=== PATIENT | female | born 1940 | race Caucasian/White ===

== ENCOUNTER 2017-04-27 06:35 | Emergency (ER) | payer MEDICARE, BC ==
[~2017-04-27] VITALS: Ht 157.5 cm; Wt 77.0 kg
[2017-04-27 06:35] VITALS: BP 173/82; PULSE 86; RESP 20; TEMP 99; O2SAT 96
--- NOTE | 2017-04-27 07:27 | PD ---
HPI Chief Complaint: Fall Time Seen by Provider: 07:14 Travel History International Travel<30 days: No Contact w/Intl Traveler<30days: No Traveled to known affect area: No History of Present Illness HPI The patient was seen and examined in the presence of the nurse. This patient fell in her bathroom this morning at 6 AM. Duration 90 minutes. Symptoms severity is moderate. She didn't turn the light on and reached for It and missed and over balanced and fell. She struck her head and face as well as tore her right arm on a cabinet handle. No loss of consciousness. She complains of headache in the right forehead and has right facial pain. Denies neck pain or vision loss or vision change. No alleviating factors. She called 911 and paramedics brought her here. She is ambulatory. PFSH Past Medical History Hx Anticoagulant Therapy: Yes (Aspirin) Depression: Yes Cardiovascular Problems: Yes High Cholesterol: Yes COPD: Yes Diminished Hearing: No GERD: Yes Respiratory: Yes Immunizations Current: Yes Thyroid Disease: Yes Influenza Vaccination: No Past Surgical History Cardiac Surgery: Yes (link monitor) Cholecystectomy: Yes (2014) Hysterectomy: Yes (2006) Social History Alcohol Use: Yes (socially) Tobacco Use: No (former) Substance Use: No Allergies-Medications (Allergen,Severity, Reaction): Coded Allergies: Augmentin (Verified Allergy, Intermediate, rash, 04/27/17) Avelox (Verified Allergy, Intermediate, rash, 04/27/17) Feldene (Verified Allergy, Intermediate, rash, 04/27/17) Levaquin (Verified Allergy, Intermediate, rash, 04/27/17) Lisinopril (Verified Allergy, Intermediate, rash, 04/27/17) Mobic (Verified Allergy, Intermediate, rash, 04/27/17) Penicillin (Verified Allergy, Intermediate, rash, 04/27/17) Streptomycin Sulfate (Verified Allergy, Intermediate, rash, 04/27/17) Tagamet (Verified Allergy, Intermediate, rash, 04/27/17) Uncoded Allergies: narcotics (Adverse Reaction, Intermediate, "i go nuts", 04/27/17) Reported Meds & Prescriptions Reported Meds & Active Scripts Active Tramadol (Tramadol HCl) 50 Mg Tab 50 Mg PO Q6H PRN Reported Aspirin 81 (Aspirin) 81 Mg Tabdr 81 Mg PO DAILY Lipitor (Atorvastatin Calcium) 20 Mg Tab 20 Mg PO HS Hydrochlorothiazide 12.5 Mg Cap 12.5-25 Mg PO DAILY [mylanta] 30 Ml PO HS Lexapro (Escitalopram Oxalate) 20 Mg Tab 20 Mg PO DAILY Advair Diskus Inh (Fluticasone-Salmeterol Inh) 250-50 Mcg/Blist Aer 1 Puff INH BID Rinse mouth after use. Levothyroxine (Levothyroxine Sodium) 100 Mcg Tab 100 Mcg PO DAILY Omeprazole 40 Mg Cap 40 Mg PO DAILY Spiriva Handihaler (Tiotropium Inh) 18 Mcg Cap 18 Mcg INH DAILY 1 capsule = 18 mcg B-12 1000 (Cobalamine Combinations) 1,000-400 Mcg Subl 1 Tab PO DAILY Clarithromycin 500 Mg Tab 500 Mg PO BID Review of Systems General / Constitutional: No: Fever Eyes: No: Visual changes HENT: Positive: Headaches Cardiovascular: No: Chest Pain or Discomfort Respiratory: No: Shortness of Breath Gastrointestinal: No: Abdominal Pain Genitourinary: No: Dysuria Musculoskeletal: Positive: Pain Skin: No Rash Neurologic: Positive: Headache, No: Weakness Psychiatric: No: Depression Endocrine: No: Polydipsia Hematologic/Lymphatic: No: Easy Bruising Physical Exam Narrative GENERAL: Well-nourished, well-developed patient in no apparent distress. SKIN: Focused skin assessment reveals no rash and nodules. Skin is Warm and dry. Has large laceration to the right upper arm. Hook-shaped laceration 10 cm in length with an additional 3 cm curled away from the main line. There is subcutaneous tissue protruding through. Skin is paperthin from steroid use. As 2 small 1 cm very shallow lacerations to the right side of the nose. HEAD: Right sided periorbital ecchymosis and tenderness of the orbital rim. Normocephalic. EYES: Pupils equal and round. No scleral icterus. No injection or drainage. Normal extraocular muscle function ENT: No nasal bleeding or discharge. Mucous membranes pink and moist. NECK: Trachea midline. No JVD. No midline tenderness CARDIOVASCULAR: Regular rate and rhythm. No murmur appreciated. RESPIRATORY: No accessory muscle use. Clear to auscultation. Breath sounds equal bilaterally. GASTROINTESTINAL: Abdomen soft, non-tender, nondistended. Hepatic and splenic margins not palpable. MUSCULOSKELETAL: No obvious deformities. No clubbing. No cyanosis. No edema. NEUROLOGICAL: Awake and alert. No obvious cranial nerve deficits. Motor grossly within normal limits. Normal speech. PSYCHIATRIC: Appropriate mood and affect; insight and judgment normal. Data Data Last Documented VS Vital Signs Date Time Temp Pulse Resp B/P Pulse Ox O2 Delivery O2 Flow Rate FiO2 04/27/17 09:46 83 18 177/80 94 Room Air 04/27/17 06:[address] Brain W/O Iv Contrast(Rout) (04/27/17 ) Ct Facial Bones W/O Iv Cont (04/27/17 ) Lidocai-Epi 1%-1:100,000 Inj (Xylocaine- (04/27/17 07:30) Lidocai-Epi 1%-1:100,000 Inj (Xylocaine- (04/27/17 07:30) Lidocai-Epi 1%-1:100,000 Inj (Xylocaine- (04/27/17 07:30) Lidocai-Epi 1%-1:100,000 Inj (Xylocaine- (04/27/17 07:30) MDM Medical Decision Making Medical Screen Exam Complete: Yes Emergency Medical Condition: Yes Medical Record Reviewed: Yes Differential Diagnosis Facial fractures, intra-cranial hemorrhage, laceration Narrative Course I have reviewed the patient's electronic medical record. Brain CT is normal Facial bone CT shows a blowout fracture of the right orbital floor with some fat herniation but no entrapment of extraocular muscles. Her extraocular muscle function is full and normal. LACERATION LOCATION: Right upper arm LENGTH: 13 cm NUMBER OF STITCHES/DIVINA: 10 sutures REPAIR: The area of the laceration was prepped with Betadine and sterilely draped. The laceration was infiltrated with lidocaine with 1% epinephrine. The wound was copiously irrigated and explored without evidence of foreign body , tendon injury or neurovascular injury. The wound was closed using 3-0 Ethilon. This was a single layer repair but very complex. She has paper thin skin that does not allow typical closure. It was a gaping wound with subcutaneous fat hanging out. I used tweezers to put the fat back as close as I could and approximate the injury. I put a double layer of Steri-Strips on either side of the wound and sutured through the Steri-Strips to give it added strength. A sterile dressing was applied. The patient was advised to keep the dressing clean and dry. Patient tolerated the procedure well. LACERATION LOCATION: Right cheek and right arm LENGTH: 8 cm total, 4 separate lacerations to on the right cheek and 2 on the right arm NUMBER OF STITCHES/DIVINA: Dermabond REPAIR: The area of the laceration was prepped with Betadine and sterilely draped. No anesthesia needed. The wound was copiously irrigated and explored without evidence of foreign body, tendon injury or neurovascular injury. The wound was closed using Dermabond in a single layer repair. Patient tolerated the procedure well. I reviewed the orbital fracture findings with maxillofacial specialist Dr. Martin. He will see her in the office in a few days. He would like to have the swelling go down prior to any consideration of intervention. She will ice the area down and try to avoid blowing the nose or sneezing. She is currently on Biaxin I wrote her some medicine for pain Diagnosis Primary Impression: Head injury due to trauma Qualified Code: S09.90XA - Head injury due to trauma, initial encounter Additional Impressions: Orbital floor (blow-out), closed fracture Laceration of arm, right, multiple sites Qualified Code: S41.111A - Laceration of arm, right, multiple sites, initial encounter Additional Instructions: The patient was advised to follow up with their physician and maxillofacial physician and return if they worsen. Sutures out in 10 days Have a wound evaluation from your primary physician in 3-5 days The patient was warned about potential sedation for the medications they will receive on prescription. Apply ice to the right face and a try to avoid sneezing or blowing her nose Med/Other Pt SpecificInfo: Prescription(s) given Scripts Tramadol 50 Mg Tab50 Mg PO Q6H PRN (PAIN) #20 TAB Ref 0 Prov:Rober Bowden MD 04/27/17 Disposition: 01 DISCHARGE HOME Condition: Stable Rober Bowden MD Apr 27, 2017 07:27
[2017-04-27] MEDS ORDERED: HYDR12.57 PO (07:29)
[2017-04-27] MEDS ORDERED: mylanta PO (07:29)
[2017-04-27] MEDS ORDERED: LEVO100T5 PO (07:29)
[2017-04-27] MEDS ORDERED: SPIRCAP INH (07:29)
[2017-04-27] MEDS ORDERED: LEXA20TA PO (07:29)
[2017-04-27] MEDS ORDERED: CLAR500T PO (07:29)
[2017-04-27] MEDS ORDERED: ASPI-110 PO (07:29)
[2017-04-27] MEDS ORDERED: LIPI20TA PO (07:29)
[2017-04-27] MEDS ORDERED: ADVA250A INH (07:29)
[2017-04-27] MEDS ORDERED: COBA1000 PO (07:29)
[2017-04-27] MEDS ORDERED: OMEP40CA2 PO (07:29)
[2017-04-27] MEDS ORDERED: LIDOCAINE 1%/EPINEPHrine 1:100,000 SOLN 50 ML VIAL INFIL ONE (07:30)
[2017-04-27] MEDS ORDERED: LIDOCAINE 1%/EPINEPHrine 1:100,000 SOLN 20 ML VIAL INFIL ONE ×3 (07:30)
--- NOTE | 2017-04-27 08:36 | RADHPO ---
EXAM DATE/TIME: 04/27/2017 07:57 [facility] COMPARISON: No previous studies available for comparison. INDICATIONS : Patient fell this morning, hitting her head. Right infraorbital laceration. RADIATION DOSE: 58.79 CTDIvol (mGy) MEDICAL HISTORY : Cardiovascular disease. Chronic obstructive pulmonary disease. Anticoagulant therapy. SURGICAL HISTORY : Cholecystectomy. Hysterectomy. Link monitor. ENCOUNTER: Initial ACUITY: 1 day PAIN SCALE: 4/10 LOCATION: Right cranial TECHNIQUE: Multiple contiguous axial images were obtained of the head. Using automated exposure control and adj ustment of the mA and/or kV according to patient size, radiation dose was kept as low as reasonably a chievable to obtain optimal diagnostic quality images. FINDINGS: CEREBRUM: The ventricles are normal for age. No evidence of midline shift, mass lesion, hemorrhage or acute in farction. No extra-axial fluid collections are seen. POSTERIOR FOSSA: The cerebellum and brainstem are intact. The 4th ventricle is midline. The cerebellopontine angle i s unremarkable. EXTRACRANIAL: The appearance of the partial right maxillary sinus visualized is abnormal. There is possible fractur e of the inferior orbital margin or the right maxillary sinus. CT of the facial bones is warranted. SKULL: The calvaria is intact. No evidence of skull fracture. CONCLUSION: 1. There is only partial visualization of the face. There is abnormal appearance of the maxillary sin us on the right suggesting either fracture of the maxillary sinus or fracture the orbit. CT of the fa cial bones is warranted for further assessment. 2. No acute intracranial abnormality. Giorgio Vu MD on April 27, 2017 at 8:29 Board Certified Radiologist. This report was verified electronically.
--- NOTE | 2017-04-27 09:23 | RADHPO ---
EXAM DATE/TIME: 04/27/2017 07:57 [facility] COMPARISON: No previous studies available for comparison. INDICATIONS : Patient fell this morning, hitting her head. Right infraorbital laceration. RADIATION DOSE: 34.93 CTDIvol (mGy) MEDICAL HISTORY : Cardiovascular disease. Chronic obstructive pulmonary disease. Anticoagulant therapy. SURGICAL HISTORY : Cholecystectomy. Hysterectomy.Link monitor. ENCOUNTER: Initial ACUITY: 1 day PAIN SCORE: 4/10 LOCATION: Right facial TECHNIQUE: Volumetric scanning of the facial bones was performed. Using automated exposure control and adjustme nt of the mA and/or kV according to patient size, radiation dose was kept as low as reasonably achiev able to obtain optimal diagnostic quality images. FINDINGS: Examination is abnormal demonstrating a right orbital floor blowout fracture with displacement of the medial orbital wall 9 mm inferior. There is herniation of orbital fat into the superior maxillary s inus. The fracture line extends along the medial margin of the infraorbital canal. The anterior inf raorbital rim appears to be intact. The inferior rectus muscle remains in the orbit. There is soft tissue density within the right maxillary sinus. The lateral and inferior wall of the right maxillar y sinus is intact. There is a retention cyst in the left maxillary sinus. There is moderate subcutaneous soft tissue swelling in the right infraorbital region with associated small flecks of gas. No radiopaque foreign bodies. The nasal bone zygomatic arches, pterygoid plates, and maxilla are intact. CONCLUSION: Right orbital floor blowout fracture with herniation of fat, but no definite muscle entrapment. The displacement of the fracture line measures up to 9 mm. No involvement of the anterior infraorbital r im. Varghese Pineda MD on April 27, 2017 at 9:13 Board Certified Radiologist. This report was verified electronically.
[2017-04-27 09:46] VITALS: BP 177/80; PULSE 83; RESP 18; O2SAT 94
[2017-04-27] MEDS ORDERED: TRAM50TA PO (10:09)
[2017-05-05] MEDS ORDERED: ALUM320S2 PO (13:49)
[2017-05-05] MEDS ORDERED: ESCI10TA PO (13:49)
[2017-05-05] MEDS ORDERED: ATOR10TA15 PO (13:49)
[2017-05-06] MEDS ORDERED: VENTAER INH (14:07)
== END 2017-04-27 10:48 | disposition home or self-care (01) ==
LOC: PHED 06:35
DX: S02.31XA Fracture of orbital floor, right side, initial encounter for closed fracture (principal); S41.111A Laceration without foreign body of right upper arm, initial encounter; S01.411A Laceration without foreign body of right cheek and temporomandibular area, initial encounter; E78.00 Pure hypercholesterolemia, unspecified; J44.9 Chronic obstructive pulmonary disease, unspecified; K21.9 Gastro-esophageal reflux disease without esophagitis; E07.9 Disorder of thyroid, unspecified; W18.30XA Fall on same level, unspecified, initial encounter; Y93.E8 Activity, other personal hygiene; Y92.002 Bathroom of unspecified non-institutional (private) residence as the place of occurrence of the external cause; Y99.8 Other external cause status
CPT/HCPCS: 12005; 12011; 70450; 70486

== ENCOUNTER 2017-04-29 08:36 | Emergency (ER) | payer MEDICARE, BC ==
[~2017-04-29] VITALS: Ht 157.5 cm; Wt 78.0 kg
[~2017-04-29 08:36] MED LIST: ADVA250A INH; ASPI-110 PO; CLAR500T PO; COBA1000 PO; HYDR12.57 PO; LEVO100T5 PO; LEXA20TA PO; LIPI20TA PO; OMEP40CA2 PO; SPIRCAP INH; TRAM50TA PO; mylanta PO
[2017-04-29 08:40] VITALS: BP 137/65; PULSE 97; RESP 16; TEMP 98.3; O2SAT 95
--- NOTE | 2017-04-29 08:58 | PD ---
HPI Chief Complaint: Injury Time Seen by Provider: 08:55 Travel History International Travel<30 days: No Contact w/Intl Traveler<30days: No Traveled to known affect area: No History of Present Illness HPI 76-year-old female patient presents to the ER today, seen 2 days ago for a fall and right arm laceration, she states that she is here now because the right arm is becoming more swollen, bruising or, and more painful. Pain is currently a 7 out of 10. She denies any fevers, chest pains, shortness of breath, or any other issues. She denies any new injuries. Modifying Factors: None Associated Signs & Symptoms: Increased right arm pain and swelling, laceration 2 days ago Risk Factors: None PFSH Past Medical History Hx Anticoagulant Therapy: Yes (BABY ASA DAILY) Depression: Yes Cardiovascular Problems: Yes (HTN, CHOL) High Cholesterol: Yes COPD: Yes Cerebrovascular Accident: Yes (TIA) Diabetes: No Diminished Hearing: No GERD: Yes Respiratory: Yes Immunizations Current: Yes Thyroid Disease: Yes ?: Not Past Surgical History Cardiac Surgery: Yes (link monitor) Cholecystectomy: Yes (2014) Hysterectomy: Yes (2006) Social History Alcohol Use: Yes (socially) Tobacco Use: No (former) Substance Use: No Allergies-Medications (Allergen,Severity, Reaction): Coded Allergies: Augmentin (Verified Allergy, Intermediate, rash, 04/29/17) Avelox (Verified Allergy, Intermediate, rash, 04/29/17) Feldene (Verified Allergy, Intermediate, rash, 04/29/17) Levaquin (Verified Allergy, Intermediate, rash, 04/29/17) Lisinopril (Verified Allergy, Intermediate, rash, 04/29/17) Mobic (Verified Allergy, Intermediate, rash, 04/29/17) Penicillin (Verified Allergy, Intermediate, rash, 04/29/17) Streptomycin Sulfate (Verified Allergy, Intermediate, rash, 04/29/17) Tagamet (Verified Allergy, Intermediate, rash, 04/29/17) Uncoded Allergies: narcotics (Adverse Reaction, Intermediate, "i go nuts", 04/27/17) Reported Meds & Prescriptions Reported Meds & Active Scripts Active Tramadol (Tramadol HCl) 50 Mg Tab 50 Mg PO Q6H PRN Reported Aspirin 81 (Aspirin) 81 Mg Tabdr 81 Mg PO DAILY Lipitor (Atorvastatin Calcium) 20 Mg Tab 20 Mg PO HS Hydrochlorothiazide 12.5 Mg Cap 12.5-25 Mg PO DAILY [mylanta] 30 Ml PO HS Lexapro (Escitalopram Oxalate) 20 Mg Tab 20 Mg PO DAILY Advair Diskus Inh (Fluticasone-Salmeterol Inh) 250-50 Mcg/Blist Aer 1 Puff INH BID Rinse mouth after use. Levothyroxine (Levothyroxine Sodium) 100 Mcg Tab 100 Mcg PO DAILY Omeprazole 40 Mg Cap 40 Mg PO DAILY Spiriva Handihaler (Tiotropium Inh) 18 Mcg Cap 18 Mcg INH DAILY 1 capsule = 18 mcg B-12 1000 (Cobalamine Combinations) 1,000-400 Mcg Subl 1 Tab PO DAILY Clarithromycin 500 Mg Tab 500 Mg PO BID Review of Systems Except as stated in HPI: all other systems reviewed are Neg Physical Exam Narrative GENERAL: Pleasant well-developed elderly white female patient currently in mild distress. Awake and oriented 3. SKIN: Focused skin assessment warm/dry. Right arm skin tear and laceration with sutures in place, wound clean, dry, intact. There is surrounding ecchymosis but no significant erythema. Mildly tender to palpation. No significant fluctuance. HEAD: Atraumatic. Normocephalic. EYES: Pupils equal and round. No scleral icterus. No injection or drainage. Right eyelid ecchymosis. ENT: No nasal bleeding or discharge. Mucous membranes pink and moist. NECK: Trachea midline. No JVD. CARDIOVASCULAR: Regular rate and rhythm. No murmur appreciated. RESPIRATORY: No accessory muscle use. Clear to auscultation. Breath sounds equal bilaterally. GASTROINTESTINAL: Abdomen soft, non-tender, nondistended. Hepatic and splenic margins not palpable. MUSCULOSKELETAL: No obvious deformities. No clubbing. No cyanosis. No edema. NEUROLOGICAL: Awake and alert. No obvious cranial nerve deficits. Motor grossly within normal limits. Normal speech. PSYCHIATRIC: Appropriate mood and affect; insight and judgment normal. Data Data Last Documented VS Vital Signs Date Time Temp Pulse Resp B/P Pulse Ox O2 Delivery O2 Flow Rate FiO2 04/29/17 09:05 16 96 Room Air 04/29/17 08:40 98.3 97 137/65 Orders Us Arm Venous Doppler (04/29/17 08:55) MDM Medical Decision Making Medical Screen Exam Complete: Yes Emergency Medical Condition: Yes Medical Record Reviewed: Yes Differential Diagnosis Right arm wound check, increased swelling and painposttraumatic edema versus wound infections versus right arm DVT Narrative Course Ultrasound shows no signs of DVT. At this point, I do not see any signs of wound infection. And I suspect that some of the symptoms may be secondary to ongoing ecchymosis and edema secondary to the initial injury. My plan would be to release the patient with follow-up to primary care physician. Return for any worsening in pain, fevers, redness, signs of infection, and as needed. The plan was discussed with patient and she states understanding. Diagnosis Primary Impression: Traumatic ecchymosis of right upper arm Additional Impression: Visit for wound check Disposition: DISCHARGE HOME Condition: Stable Ofe Lawson MD Apr 29, 2017 08:58
--- NOTE | 2017-04-29 10:05 | RADHPO ---
EXAM DATE/TIME: 04/29/2017 09:05 [facility] COMPARISON: No previous studies available for comparison. INDICATIONS : Right arm edema. MEDICAL HISTORY : Hypothyroidism. Hypercholesterolemia. Chronic obstructive pulmonary disease. TIA. Hypertension. SURGICAL HISTORY : Cholecystectomy. Hysterectomy. ENCOUNTER: Initial ACUITY: 3 days PAIN SCORE: 7/10 LOCATION: Right arm. FINDINGS: There is spontaneous flow documented in the brachial, basilic, cephalic, axillary, and subclavian vei ns. The vessels are compressible and augmentation response is documented. No filling defects are se en. The flow is phasic with respiration. Direction of flow in the jugular vein is caudal. CONCLUSION: Normal examination. Varghese Meyer Jr., MD on April 29, 2017 at 10:02 Board Certified Radiologist. This report was verified electronically.
[2017-05-05] MEDS ORDERED: ALUM320S2 PO (13:49)
[2017-05-05] MEDS ORDERED: ATOR10TA15 PO (13:49)
[2017-05-05] MEDS ORDERED: ESCI10TA PO (13:49)
[2017-05-06] MEDS ORDERED: VENTAER INH (14:07)
== END 2017-04-29 10:29 | disposition home or self-care (01) ==
LOC: PHED 08:36
DX: S40.021A Contusion of right upper arm, initial encounter (principal); W19.XXXA Unspecified fall, initial encounter
CPT/HCPCS: 93971; 99284

== ENCOUNTER → 2017-05-06 | Day surgery (SDC) | payer MEDICARE, BC ==
--- NOTE | 2017-05-05 19:19 | MH ---
cc: ABRAM CRAWLEY D.D.S. DATE OF ADMISSION 05/06/2017 DATE OF 1940 DATE OF CONSULTATION May 01, 2017 DATE OF SURGERY May 06, 2017 REASON FOR OFFICE VISIT She is a pleasant lady who is status post a fall, hitting her right orbit, sustained an orbital blowout fracture. Her past medical history includes COPD, gastroesophageal reflux, history of transient ischemic attack. PAST HOSPITALIZATIONS 1. She had a fracture of right arm repaired. 2. She had a hysterectomy. 3. Her gallbladder out as well. PAST MEDICAL HISTORY Medical history malone, 1. She has controlled hypertension. 2. She had a TIA in July of last year. 3. She had a Reveal heart monitor implanted that is in place. ALLERGIES NO ALLERGIES TO LOCAL ANESTHESIA. SHE DOES HAVE AN ALLERGY TO PENICILLIN AND IBUPROFEN. CURRENT MEDICATIONS She takes include: 1. Spiriva 18 micrograms daily. 2. Levothroid 112 micrograms daily. 3. Prilosec 40 milligrams twice a day. 4. Advair twice a day. 5. Lexapro 20 milligrams daily. 6. Mylanta 30 milligrams as needed. 7. Hydrochlorothiazide 12.5 daily. 8. Lipitor 20 milligrams daily. 9. Baby aspirin. ALLERGIES AGAIN HER ALLERGIES ARE EXTENSIVE AND INCLUDE PENICILLIN, NARCOTICS MAKE HER NAUSEOUS. AUGMENTIN. STREPTOMYCIN, FELDENE, LEVAQUIN, AVELOX, TAGAMET, LISINOPRIL, MOBIC. REVIEW OF SYSTEMS Again she: CARDIOVASCULAR: Has a history of hypertension. RESPIRATORY: She has a history of chronic obstructive pulmonary disease, emphysema. She smoked for years. ENDOCRINE: No history of diabetes or hormone therapy. HEMATOLOGIC: No anemia, transfusions. NEUROLOGIC: No sensory or motor disturbances. PHYSICAL EXAMINATION EYES: Her pupils are equal, round and reactive to lysis of adhesions. Extraocular muscles are intact. grossly intact. NOSE: Her nasal bones are stable. Septum in the midline. MOUTH: And oral cavity malone she has no pathology. She has normal dentition. CARDIOVASCULAR: Regular rate and rhythm. No murmurs heard. She does have a Reveal heart monitor implant placed. GASTROINTESTINAL: She has a history of gallbladder and peptic ulcer problems. EXTREMITIES: She has got good range of motion. NEUROLOGIC: She is alert and oriented times three. PLAN Our plan is to [facility] for reconstruction of her right orbital blow out fracture with use of a KLS reabsorbable mesh. Risks and benefits were discussed with the patient. Consent planned. She will present to [facility] for outpatient surgery. MANJIT Merino /4:03 PM /6:52 PM
[~2017-05-06] VITALS: Ht 157.5 cm; Wt 78.4 kg
[~2017-05-06] MED LIST changes: +ACETAMINOPHEN 325 MG TAB PO PRN; +ALUM320S2 PO; +ATOR10TA15 PO; +BACITRACIN OPHT OINT 3.5 GM TUBO ONE; +BACITRACIN TOP OINT 15 GM TUBE ONE; +BALANCED SALT SOLN OPHT IRRIG 15 ML BTL ONE; +BUPIVACAINE/EPINEPHRINE 0.5% PF 30 ML VIAL ONE; +CHLORHEXIDINE GLUCONATE 2 % 1 PACK (2 CLOTHS) TOPICAL PRN; +DO NOT ADM ANY ANTICOAGULANT DRUGS PRN; +ESCI10TA PO; +FAMOTIDINE 20 MG/2 ML VIAL ONE; +INSULIN HUMAN REGULAR 1,000 UNITS/10 ML VIAL SQ PRN; +LACTATED RINGER'S 1000 ML IV PRN; -LEXA20TA PO; +LIDOCAINE 2%/EPINEPHrine 1:100,000 30ML MDV ONE; +LIDOCAINE HCL 1% 50 ML VIAL ONE; +LIDOCAINE HCL 2% 50 ML VIAL ONE; -LIPI20TA PO; +METOPROLOL TARTRATE 25 MG TAB PO PRN; +MORPHINE SULFATE 4 MG/ML INJ IV PRN; +ONDANSETRON HCL 4 MG/2 ML VIAL IV PUSH ONE; +POVIDONE IODINE 5% (ANTISEPSIS KIT) 4 APPLICATIONS EACH NARE PRN; +SODIUM CHLORID 0.9% 500 ML IV PRN; +SODIUM CHLORIDE FLUSH BID IV FLUSH SCH; +SODIUM CHLORIDE FLUSH PRN IV FLUSH; +SUGAMMADEX SODIUM 200 MG/2 ML VIAL IV PUSH ONE; +VENTAER INH; +fentaNYL CITRATE 250 MCG/5 ML AMP ONE; -mylanta PO
[2017-05-06 13:45] VITALS: BP 105/65; PULSE 78; RESP 18; TEMP 97.8; O2SAT 94
[2017-05-06 17:46] VITALS: BP 112/49; PULSE 77; RESP 18; TEMP 98; O2SAT 95
--- NOTE | 2017-05-07 22:52 | EKG ---
Date Performed: 05/06/2017 Time Performed: 13:15:18 PTAGE: 76 years EKG: Sinus rhythm NORMAL ECG NO PREVIOUS TRACING DOCTOR: Roberto Jin Interpretating Date/Time 05/07/2017 22:50:31
--- NOTE | 2017-05-08 20:17 | MP ---
cc: ABRAM CRAWLEY DDS DATE OF SURGERY 05/06/17 DATE OF 1940. PREOPERATIVE DIAGNOSIS Right orbital blowout fracture POSTOPERATIVE DIAGNOSIS Right orbital blowout fracture PROCEDURE PERFORMED Reconstruction of right orbital floor with KLS mesh. SURGEON Mary Crawley, MANJIT BEAUTY DIRECTOR Jacobo ANESTHESIA General anesthesia with oral endotracheal tube FLUIDS GIVEN 500 mL crystalloid SPECIMEN None. COMPLICATIONS None. JUSTIFICATION Ms. Spangler a pleasant 76-year lady that fell about 10 days ago at home, sustained a blow to her right arm that she severed on the dresser and the right orbital blowout fracture. Her right arm was repaired in the emergency room. She came to my office about a week after her injury. CT scan was evaluated and noted to have orbital blowout fracture. There was extensive, almost a centimeter in separation, with a herniation of the contents from the orbital floor to the maxillary antrum. Plan is for surgery. Discussed the risk and benefit. The patient diplopia as well on upward gaze as well as looking forward. On 05/06, she presented to [facility] where she was identified by name and her wristband, marking done with the patient in the holding area, brought back into OR #6 where she was intubated by anesthesia. Endotracheal tube was secured to the left side. She was prepped and draped in a sterile fashion. Local anesthesia was given in the right orbit in the transconjunctival area with 3 mL of 2% Xylocaine 1:100,000 epinephrine. Initial incision made just for release of the tarsal plates just inside the lateral canthal region, 2-0 silk used to suture the lid down. Desmoid ___ retractor was placed. Bovie on a setting of 15 was used to make a preseptal incision in the conjunctiva dissecting down with Kittner's to the rim, cut down the rim with a Bovie and then lifting up the periorbita with the periosteal elevator to lift the periosteum off the orbital floor to expose the blowout which is significant in the middle and to medial wall. Contents of the orbit. All the fat and muscle were pulled back out of the hole leading into the sinus. It was irrigated with copious amounts of saline and then KLS mesh was placed with the triangular patch fashion heading posteriorly and the open part of the mesh anteriorly. It was fixated to the rim with a 5 mm 1.5 KLS screw. Again, forced duction testing making sure good rotation of the eye rechecking to make it was laying flush on the floor and all the contents were above it plugging up the hole in the floor of the orbit. Irrigation with balanced saline solution. Closure of the tarsal was done with a 5-0 PDS in a knot burying fashion in a 5-0 fast gut on the skin. The patient tolerated procedure well, was extubated, taken to recovery with vital signs stable. MANJIT Merino/ /4:35 PM /8:10 PM
== END | disposition home or self-care (01) ==
LOC: HSDC 12:28
PROVIDERS: ATTEND Dentist Oral and Maxillofacial Surgery
DX: S02.31XA Fracture of orbital floor, right side, initial encounter for closed fracture (principal); I10 Essential (primary) hypertension; J44.9 Chronic obstructive pulmonary disease, unspecified; E78.5 Hyperlipidemia, unspecified; E03.9 Hypothyroidism, unspecified; Z86.73 Personal history of transient ischemic attack (TIA), and cerebral infarction without residual deficits; Z88.0 Allergy status to penicillin; W19.XXXA Unspecified fall, initial encounter; Z87.891 Personal history of nicotine dependence; Z88.1 Allergy status to other antibiotic agents; Z88.5 Allergy status to narcotic agent; Z88.8 Allergy status to other drugs, medicaments and biological substances
CPT/HCPCS: 21386; 93005; C1713; J2405; J3010; J7120

== ENCOUNTER → 2017-06-09 | Day surgery (SDC) | payer MEDICARE, BC ==
[~2017-06-09] VITALS: Ht 157.5 cm; Wt 78.7 kg
[~2017-06-09] MED LIST changes: +*RESP: ALBUTEROL 2.5 MG/3 ML NEB (PRN) PERIprocedural Use ONLY NEB ONE; +ACETAMINOPHEN 1000 MG/100 ML VIAL IV ONE; -ACETAMINOPHEN 325 MG TAB PO PRN; +APREPITANT 40 MG CAP ONE; +ASPI-99 PO; +ATOR40TA16 PO; -BUPIVACAINE/EPINEPHRINE 0.5% PF 30 ML VIAL ONE; -CLAR500T PO; +CLINDAMYCIN PHOS 600 MG/4 ML VIAL ONE; -DO NOT ADM ANY ANTICOAGULANT DRUGS PRN; -FAMOTIDINE 20 MG/2 ML VIAL ONE; +FEXO15TA PO; +LEVO88TA2 PO; -LIDOCAINE HCL 1% 50 ML VIAL ONE; -LIDOCAINE HCL 2% 50 ML VIAL ONE; -MORPHINE SULFATE 4 MG/ML INJ IV PRN; +NEOSTIGMINE 3 MG/3 ML SYR IV ONE; +PHENYLEPHRINE HCL 0.25% NASAL SPRAY 15 ML BTL ONE; +PROPOFOL 200 MG/20 ML AMP IV ONE; -SODIUM CHLORIDE FLUSH BID IV FLUSH SCH; -SODIUM CHLORIDE FLUSH PRN IV FLUSH; -SUGAMMADEX SODIUM 200 MG/2 ML VIAL IV PUSH ONE; +TRIAMCINOLONE ACETONIDE 40 MG/ML VIAL ONE
--- NOTE | 2017-06-09 07:51 | MH ---
cc: ABRAM CRAWLEY D.D.S. DATE OF ADMISSION: 06/09/2017 DATE OF : 1940 HISTORY OF PRESENT ILLNESS Ms. Spangler is a pleasant 76-year-old female who about four weeks ago presented to [facility] with a fall and a right orbital floor fracture. I took her to surgery on 05/06/2017. She had fallen in the middle of the night while walking to the bathroom and struck her face, her arm and her hip. I took her for orbital floor reconstruction with absorbable mesh. Subsequently in her follow-up she still continued to experience diplopia and upward gaze. On CT scan post-op she still has some herniation of contents where the orbital floor extends up into the medial wall of the maxillary sinus and the lateral wall of the nose. Due to this situation we planned to take her back to the operating room to see if we could take out the absorbable mesh and put in a larger metallic mesh with arm extension that extends up further out to see if we could get the rest of the contents back up in a better position for her. She appears to still have some difficulty in rotation upward with her inferior rectus muscle catching some. The plan is to take her back to the operating room to remove the absorbable mesh and put in a larger metallic mesh that extends back further posteriorly as well as up on the medial orbital rim. I discussed with the patient, showed her the post-op CT. I discussed with her and her partner the details of this, the difficulty with some scarring and going back in, but I feel at this point in time she should have better resolution of that. We are going to attempt to go back and do a revision on this area. PAST MEDICAL HISTORY 1. Allergies, she uses Advair. 2. Emphysema, shortness of breath, COPD. 3. GERD. 4. Thyroid disease. ALLERGIES 1. AUGMENTIN. 2. AVELOX. 3. SELDANE. 4. LEVAQUIN. 5. LISINOPRIL. 6. MOBIC. 7. NARCOTICS MAKE HER NAUSEOUS. 8. STREPTOMYCIN. 9. TAGAMET. PHYSICAL EXAMINATION HEAD: Her head is normocephalic without scars or tattoos. EYES: Pupils are equal, round, react to light and accommodate. Extraocular muscles are intact. She has some diplopia on upward gaze. There appears to be some restriction in that right orbit. EARS: TMs are clear. NOSE: Nasal bones stable. Septum midline. MOUTH/ORAL CAVITY: She has normal dentition. NECK: Supple without adenopathy. CARDIOVASCULAR: Regular rate and rhythm, S1, S2, no murmurs. LUNGS: Bilaterally clear to auscultation. ABDOMEN: Soft, nontender. Bowel sounds are present in all four quadrants. NEUROLOGIC: She is alert and oriented x3. ASSESSMENT AND PLAN [facility] for removal of resorbable mesh, continued lifting of contents from the orbital floor out of the sinus and placement of a larger metallic mesh with a medial arm extension on it to help support the contents due to this large orbital floor blow-out fracture. MANJIT Merino/DALJIT /7:20 AM /7:40 AM GATO
[2017-06-09 15:00] VITALS: BP 110/64; PULSE 71; RESP 16; TEMP 98.6; O2SAT 96
[2017-06-09 18:30] VITALS: BP 125/60; PULSE 75; RESP 16; TEMP 98.5; O2SAT 97
--- NOTE | 2017-06-25 10:05 | MP ---
cc: ELIAS CRAWLEY D.D.S. DATE OF : 10/13/1946 DATE OF SURGERY: 06/09/2017 PREOPERATIVE DIAGNOSIS: 1. Right orbital blow out fracture. 2. Continued diplopia after the previous surgery to repair. POSTOPERATIVE DIAGNOSIS: 1. Right orbital blow out fracture. 2. Continued diplopia after the previous surgery to repair. OPERATION: Revision of right orbital floor by removal of absorbable mesh and placement of a larger titanium mesh that extends more posteriorly an upper medial orbital wall. SURGEON: Elias Crawley DDS. ON AWAKE COUNSELOR: Jacobo ALARCON General anesthesia see anesthesia record. SPECIMEN None. COMPLICATIONS: Miss Spangler is a 76-year-old female. She fell about four weeks prior was and taken to [facility] for right orbital floor. After the surgery on 05/06 she had a fall in the middle of the night and extensively struck her face and arm. She has had continued diplopia. A postop CT show she still has some herniation of contents posterior medially leaving her absorbable mesh in place. We have given enough time for resolution, plan is to take her back to try and get the rest of the contents out of the antrum use a larger titanium mesh with extension on, that goes up the medial wall as well as back further posteriorly. The risks and benefits were described to the patient, consent was done, consent signed, to proceed as planned. On 06/[address] [facility] where she identified by name, her arm band and the medical record number she was brought back to operating room. She was intubated by anesthesia orally, she is prepped and draped in sterile fashion. Local anesthesia given with 2% Xylocaine, 1:1000 epinephrine for a total of 6 cc around the orbital floor and on periorbital region of the right eye. A 2-0 silk sutures placed on the lower lid to retract it back. Desmoid Sana retractors were used. A small release incision in the tarsal plate was done about 5 mm from the lateral canthal region. The lid was retracted down Bovie on setting was used on cutting mode to dissect through the conjunctive in a preseptal fashion. A Kitner was used to dissect down preseptal, pushing the tissue back, until we get down to the orbital rim, cut down on the rim was done and started to remove the herniation and contents. The absorbable mesh was still in place. Screws were removed, mesh was pulled out as well with some of the contents released off of the floor were starting to grow through a little bit. Use of a [employer] orbital floor retractor were used to extend this back further and will continue to pull the contents out of the posterior medial orbital floor, that was still done even with the mesh in place. Meticulous dissection was done to continue to pull up and release this out of the contents to allow the inferior rectus muscle to rotate better, and to try to restore the volume in the orbit. After this was all up, a titanium mesh was placed with a two arm extension on it with the medial wall extending up the medial wall of the orbit, over the lateral wall of the nasal bones to make sure all the contents were laid back above and not herniating down to the maxillary antrum. A forced duction test was done showed a good movement. The mesh was fixated to the orbital rim with two 5 mm screws self drilling, after this was done irrigation with copious amounts of saline was done. Again checking again, lifting up, checking the contents. The mesh extended back and attached to bone on the posterior orbital floor all the contents was up, sutured over with 5-0 PDS to sew the tarsal plate back and then 5-0 fast on the skin. The patient time procedure well. She was extubated, with vital signs stable. MANJIT Merino /8:59 AM /9:08 AM
== END | disposition home or self-care (01) ==
LOC: HSDC 13:54
PROVIDERS: ATTEND Dentist Oral and Maxillofacial Surgery
DX: S02.31XA Fracture of orbital floor, right side, initial encounter for closed fracture (principal); W18.30XA Fall on same level, unspecified, initial encounter; Z91.81 History of falling; H53.2 Diplopia
CPT/HCPCS: 00190; 21390; 94664; C1713; J0131; J2405; J2710; J3010; J3301; J7120; J7613; J8501

== ENCOUNTER 2017-06-16 19:08 | Observation (INO) | payer MEDICARE, BC ==
[2017-06-16] VITALS (7 sets, daily range): BP systolic 129–169; BP diastolic 66–88; PULSE 70–94; RESP 18; TEMP 98.2–98.5; O2SAT 94–96
[~2017-06-16] VITALS: Ht 157.5 cm; Wt 76.0 kg
[~2017-06-16 19:08] MED LIST changes: -*RESP: ALBUTEROL 2.5 MG/3 ML NEB (PRN) PERIprocedural Use ONLY NEB ONE; -ACETAMINOPHEN 1000 MG/100 ML VIAL IV ONE; -APREPITANT 40 MG CAP ONE; -ASPI-99 PO; -ATOR40TA16 PO; -BACITRACIN OPHT OINT 3.5 GM TUBO ONE; -BACITRACIN TOP OINT 15 GM TUBE ONE; -BALANCED SALT SOLN OPHT IRRIG 15 ML BTL ONE; -CHLORHEXIDINE GLUCONATE 2 % 1 PACK (2 CLOTHS) TOPICAL PRN; -CLINDAMYCIN PHOS 600 MG/4 ML VIAL ONE; -FEXO15TA PO; -INSULIN HUMAN REGULAR 1,000 UNITS/10 ML VIAL SQ PRN; -LACTATED RINGER'S 1000 ML IV PRN; -LEVO88TA2 PO; -LIDOCAINE 2%/EPINEPHrine 1:100,000 30ML MDV ONE; -METOPROLOL TARTRATE 25 MG TAB PO PRN; -NEOSTIGMINE 3 MG/3 ML SYR IV ONE; -ONDANSETRON HCL 4 MG/2 ML VIAL IV PUSH ONE; -PHENYLEPHRINE HCL 0.25% NASAL SPRAY 15 ML BTL ONE; -POVIDONE IODINE 5% (ANTISEPSIS KIT) 4 APPLICATIONS EACH NARE PRN; -PROPOFOL 200 MG/20 ML AMP IV ONE; -SODIUM CHLORID 0.9% 500 ML IV PRN; -TRIAMCINOLONE ACETONIDE 40 MG/ML VIAL ONE; -fentaNYL CITRATE 250 MCG/5 ML AMP ONE
[2017-06-16] MEDS ORDERED: SODIUM CHLORIDE 0.9% FLUSH 10 ML FLUSH IVF PRN (19:15)
[2017-06-16 19:33] LABS: AUTOMATED NEUTROPHIL # 5.5 TH/MM3 (1.8-7.7); BASOPHIL # 0.1 TH/MM3 (0-0.2); BASOPHIL % 1.1 % (0.0-2.0); EOSINOPHIL # 0.2 TH/MM3 (0-0.4); EOSINOPHIL % 1.8 % (0.0-4.0); HEMATOCRIT 37.4 % (35.0-46.0); HEMO FLAGS DIFF FINAL; LYMPH % 25.6 % (9.0-44.0); LYMPHOCYTE # 2.2 TH/MM3 (1.0-4.8); MEAN CELL VOLUME 88.1 FL (80.0-100.0); MEAN CORPUSCULAR HEMOGLOBIN 29.6 PG (27.0-34.0); MEAN CORPUSCULAR HGB CONC 33.6 % (32.0-36.0); MONO % 5.3 % (0.0-8.0); NEUT % 66.2 % (16.0-70.0); PLATELET COUNT 221 TH/MM3 (150-450); RED BLOOD COUNT 4.25 MIL/MM3 (4.00-5.30); RED CELL DISTRIBUTION WIDTH 11.9 % (11.6-17.2); WHITE BLOOD COUNT 8.5 TH/MM3 (4.0-11.0)
[2017-06-16] MEDS ORDERED: LEVO88TA2 PO (19:36)
--- NOTE | 2017-06-16 19:37 | RADRPT ---
EXAM DATE/TIME: 06/16/2017 19:25 [facility] COMPARISON: No previous studies available for comparison. INDICATIONS : Dizziness, weakness, slurring of speech starting today MEDICAL HISTORY : Chronic obstructive pulmonary disease. SURGICAL HISTORY : None. ENCOUNTER: Initial ACUITY: 1 day PAIN SCORE: 0/10 LOCATION: Bilateral chest FINDINGS: A single view of the chest demonstrates minimal bibasilar patchy densities. Heart normal in size. Os seous structures are intact. CONCLUSION: Bibasilar patchy infiltrates. Isac Natarajan MD on June 16, 2017 at 19:34 Board Certified Radiologist. This report was verified electronically.
[2017-06-16] MEDS ORDERED: FEXO15TA PO (19:38)
[2017-06-16 19:44] LABS: CHLORIDE 109 MEQ/L (98-107); POTASSIUM 3.9 MEQ/L (3.5-5.1); SODIUM (NA) 144 MEQ/L (136-145)
[2017-06-16 19:47] LABS: APTT (PATIENT) 23.4 SEC (24.3-30.1); PROTHROMBIN TIME - PATIENT 10.6 SEC (9.8-11.6)
[2017-06-16 19:48] LABS: ANION GAP 8 MEQ/L (5-15); BICARBONATE 26.6 MEQ/L (21.0-32.0); BLOOD UREA NITROGEN 12 MG/DL (7-18)
[2017-06-16 19:51] LABS: GLOMERULAR FILTRATION RATE 63 ML/MIN (>89)
--- NOTE | 2017-06-16 19:52 | PD ---
HPI Chief Complaint: Neuro Symptoms/ Deficits Time Seen by Provider: 19:14 Travel History International Travel<30 days: No Contact w/Intl Traveler<30days: No Traveled to known affect area: No History of Present Illness HPI 76-year-old female arrives complaining of dysarthria. For 20 minutes or so bleeding up to the [place] of her arrival to the ER she was unable to speak. It resolved spontaneously upon arrival was noted. The patient had a similar episode years ago. In the ER she has no weakness numbness tingling or dysarthria. She notes that a week ago today she underwent a right orbit surgery. Patient takes aspirin daily. Stroke assessment performed on arrival and the patient had no acute focal deficit. PFSH Past Medical History Hx Anticoagulant Therapy: Yes Depression: Yes Cancer: No Cardiovascular Problems: Yes (REVEAL MONITOR) High Cholesterol: Yes COPD: Yes Cerebrovascular Accident: Yes Diabetes: No Diminished Hearing: No Endocrine: No Gastrointestinal Disorders: Yes (GERD) GERD: Yes Genitourinary: No Hepatitis: No Hiatal Hernia: Yes Hypertension: Yes Immune Disorder: No Musculoskeletal: Yes (OA, OSTEOPENIA) Neurologic: Yes (TIA, SMALL ANEURSYM CLOSE TO LEFT EYEBROW,CONCUSION) Psychiatric: No (ANXIETY, DEPRESSION) Reproductive: No Respiratory: Yes (COPD) Immunizations Current: Yes Thyroid Disease: Yes Menopausal: Yes Past Surgical History Abdominal Surgery: Yes (CHOLECYSTECTOMY) AICD: No Body Medical Devices: PLATE/SCREWS RIGHT WRIST, REVEAL MONITOR,SCREW IN R EYE Cardiac Surgery: Yes (REVEAL MONITOR) Cholecystectomy: Yes (2014) Ear Surgery: No Endocrine Surgery: No Eye Surgery: Yes (BILATERAL CATARACTS) Genitourinary Surgery: No Gynecologic Surgery: Yes (HYSTERECTOMY) Hysterectomy: Yes (2006) Joint Replacement: No Neurologic Surgery: No Oral Surgery: No Pacemaker: No Thoracic Surgery: No Other Surgery: Yes Social History Alcohol Use: Yes (socially- beer or wine) Tobacco Use: No (former-quit 2 yrs ago smoked 4 ppd ) Substance Use: No Allergies-Medications (Allergen,Severity, Reaction): Coded Allergies: Augmentin (Verified Allergy, Intermediate, rash, 06/16/17) Avelox (Verified Allergy, Intermediate, rash, 06/16/17) Feldene (Verified Allergy, Intermediate, rash, 06/16/17) Levaquin (Verified Allergy, Intermediate, rash, 06/16/17) Lisinopril (Verified Allergy, Intermediate, rash, 06/16/17) Mobic (Verified Allergy, Intermediate, rash, 06/16/17) Penicillin (Verified Allergy, Intermediate, rash, 06/16/17) Streptomycin Sulfate (Verified Allergy, Intermediate, rash, 06/16/17) Tagamet (Verified Allergy, Intermediate, rash, 06/16/17) Uncoded Allergies: narcotics (Adverse Reaction, Intermediate, "i go nuts", 04/27/17) Reported Meds & Prescriptions Reported Meds & Active Scripts Active Reported [facility]ell Allergy (Fexofenadine HCl) 180 Mg Tab 180 Mg PO DAILY Levothyroxine (Levothyroxine Sodium) 88 Mcg Tab 88 Mcg PO DAILY Ventolin Hfa 18 GM Inh (Albuterol Sulfate) 90 Mcg/Act Aer 2 Puff INH Q4H PRN Aluminum Hydroxide Liq Gel (Aluminum Hydroxide) 320 Mg/5 Ml Susp 10 Ml PO Q4H PRN Take after meals and at bedtime. Maximum of 3,840 mg (60 ml)/24 hrs. Aspirin 81 (Aspirin) 81 Mg Tabdr 81 Mg PO DAILY Hydrochlorothiazide 12.5 Mg Cap 12.5-25 Mg PO DAILY PRN Advair Diskus Inh (Fluticasone-Salmeterol Inh) 250-50 Mcg/Blist Aer 1 Puff INH BID Rinse mouth after use. Omeprazole 40 Mg Cap 40 Mg PO BID Spiriva Handihaler (Tiotropium Inh) 18 Mcg Cap 18 Mcg INH DAILY 1 capsule = 18 mcg B-12 1000 (Cobalamine Combinations) 1,000-400 Mcg Subl 1 Tab PO DAILY Review of Systems Except as stated in HPI: all other systems reviewed are Neg Physical Exam Narrative GENERAL: 76 yo F, WNWD, pleasant SKIN: Warm and dry. HEAD: Atraumatic. Normocephalic. EYES: Pupils equal and round. There is no nystagmus. There is a intact and conjugate range of motion of the gaze. ENT: No nasal bleeding or discharge. Mucous membranes pink and moist. NECK: Trachea midline. No JVD. CARDIOVASCULAR: Regular rate and rhythm. RESPIRATORY: No accessory muscle use. Clear to auscultation. Breath sounds equal bilaterally. GASTROINTESTINAL: Abdomen soft, non-tender, nondistended. Hepatic and splenic margins not palpable. MUSCULOSKELETAL: Extremities without clubbing, cyanosis, or edema. No obvious deformities. NEUROLOGICAL: Patient is awake and alert. She is speaking full sentences with clear articulation. Motor function upper and lower extremities is equal 5/5 bilaterally. PSYCHIATRIC: Appropriate mood and affect; insight and judgment normal. Data Data Last Documented VS Vital Signs Date Time Temp Pulse Resp B/P Pulse Ox O2 Delivery O2 Flow Rate FiO2 06/16/17 19:15 95 Room Air 06/16/17 19:10 98.2 94 18 169/85 VS reviewed Orders Electrocardiogram (06/16/17 19:14) Prothrombin Time / Inr (Pt) (06/16/17 19:14) Act Partial Throm Time (Ptt) (06/16/17 19:14) Complete Blood Count With Diff (06/16/17 19:14) Basic Metabolic Panel (Bmp) (06/16/17 19:14) Creatine Kinase (Cpk) (06/16/17 19:14) Troponin I (06/16/17 19:14) Urinalysis - C+S If Indicated (06/16/17 19:14) Ct Brain W/O Iv Contrast(Rout) (06/16/17 19:14) Chest, Single Ap (06/16/17 19:14) Ecg Monitoring (06/16/17 19:14) Iv Access Insert/Monitor (06/16/17 19:14) Oxygen Administration (06/16/17 19:14) Oximetry (06/16/17 19:14) Blood Glucose (06/16/17 19:14) Sodium Chloride 0.9% Flush (Ns Flush) (06/16/17 19:15) Labs Laboratory Tests Test 06/16/17 19:15 White Blood Count 8.5 TH/MM3 Red Blood Count 4.25 MIL/MM3 Hemoglobin 12.6 GM/DL Hematocrit 37.4 % Mean Corpuscular Volume 88.1 FL Mean Corpuscular Hemoglobin 29.6 PG Mean Corpuscular Hemoglobin 33.6 % Concent Red Cell Distribution Width 11.9 % Platelet Count 221 TH/MM3 Mean Platelet Volume 7.7 FL Neutrophils (%) (Auto) 66.2 % Lymphocytes (%) (Auto) 25.6 % Monocytes (%) (Auto) 5.3 % Eosinophils (%) (Auto) 1.8 % Basophils (%) (Auto) 1.1 % Neutrophils # (Auto) 5.5 TH/MM3 Lymphocytes # (Auto) 2.2 TH/MM3 Monocytes # (Auto) 0.5 TH/MM3 Eosinophils # (Auto) 0.2 TH/MM3 Basophils # (Auto) 0.1 TH/MM3 CBC Comment DIFF FINAL Differential Comment Prothrombin Time 10.6 SEC Prothromb Time International 1.0 RATIO Ratio Activated Partial 23.4 SEC Thromboplast Time Sodium Level 144 MEQ/L Potassium Level 3.9 MEQ/L Chloride Level 109 MEQ/L Carbon Dioxide Level 26.6 MEQ/L Anion Gap 8 MEQ/L Blood Urea Nitrogen 12 MG/DL Creatinine 0.88 MG/DL Estimat Glomerular Filtration 63 ML/MIN Rate Random Glucose 100 MG/DL Calcium Level 8.4 MG/DL Total Creatine Kinase 53 U/L Troponin I LESS THAN 0.02 NG/ML MDM Medical Decision Making Medical Screen Exam Complete: Yes Emergency Medical Condition: Yes Medical Record Reviewed: Yes Differential Diagnosis TIA, stroke, complex migraine, Ruiz's paralysis Narrative Course EKG is a sinus rhythm with a rate of 87 normal axis and normal intervals Finger stick glucose is 105 Oncoming provider to follow-up head CT and plan for admission due to a TIA. Diagnosis Primary Impression: TIA (transient ischemic attack) Giorgio Mcduffie MD Jun 16, 2017 19:52
[2017-06-16 19:55] LABS: CREATINE KINASE 53 U/L (26-192)
--- NOTE | 2017-06-16 20:30 | RADRPT ---
EXAM DATE/TIME: 06/16/2017 20:01 [facility] COMPARISON: No previous studies available for comparison. INDICATIONS : Aphasia, since subsided. RADIATION DOSE: 60.95 CTDIvol (mGy) MEDICAL HISTORY : Cerebrovascular disease. SURGICAL HISTORY : None. ENCOUNTER: Initial ACUITY: 1 day PAIN SCALE: 0/10 LOCATION: cranial TECHNIQUE: Multiple contiguous axial images were obtained of the head. Using automated exposure control and adj ustment of the mA and/or kV according to patient size, radiation dose was kept as low as reasonably a chievable to obtain optimal diagnostic quality images. DICOM format image data is available electro nically for review and comparison. FINDINGS: CEREBRUM: The ventricles are normal for age. Areas of low-attenuation throughout the white matter. No evidence of midline shift, mass lesion, hemorrhage or acute infarction. No extra-axial fluid collections are seen. POSTERIOR FOSSA: The cerebellum and brainstem are intact. The 4th ventricle is midline. The cerebellopontine angle i s unremarkable. EXTRACRANIAL: The visualized portion of the orbits is intact. SKULL: The calvaria is intact. No evidence of skull fracture. CONCLUSION: Nonspecific white matter changes. Isac Natarajan MD on June 16, 2017 at 20:27 Board Certified Radiologist. This report was verified electronically.
--- NOTE | 2017-06-16 20:31 | PD ---
Physical Exam Narrative Patient was seen by ED physician and signed out to me. Patient has history of TIA in July 2016. 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 Patient has been taking aspirin 81 mg daily. Patient has implanted child monitor in place which could be compatible with MRI MRA. Patient has expressive aphasia started about half an hour prior to arrival and got better after she arrived. Patient states that she is about 90% back to normal. Patient denies any focal weakness or numbness of extremity. Patient status post right orbital fracture recently status post surgery and right arm laceration status post repair. Patient states that she has residual pain and numbness and weakness on the right side of face and right visual blurry. Data Data Last Documented VS Vital Signs Date Time Temp Pulse Resp B/P Pulse Ox O2 Delivery O2 Flow Rate FiO2 06/16/17 22:00 70 18 129/70 95 Room Air 06/16/17 19:10 98.2 Orders Electrocardiogram (06/16/17 19:14) Prothrombin Time / Inr (Pt) (06/16/17 19:14) Act Partial Throm Time (Ptt) (06/16/17 19:14) Complete Blood Count With Diff (06/16/17 19:14) Basic Metabolic Panel (Bmp) (06/16/17 19:14) Creatine Kinase (Cpk) (06/16/17 19:14) Troponin I (06/16/17 19:14) Urinalysis - C+S If Indicated (06/16/17 19:14) Ct Brain W/O Iv Contrast(Rout) (06/16/17 19:14) Chest, Single Ap (06/16/17 19:14) Ecg Monitoring (06/16/17 19:14) Iv Access Insert/Monitor (06/16/17 19:14) Oxygen Administration (06/16/17 19:14) Oximetry (06/16/17 19:14) Blood Glucose (06/16/17 19:14) Sodium Chloride 0.9% Flush (Ns Flush) (06/16/17 19:15) Thyroid Stimulating Hormone (06/16/17 19:15) Clopidogrel (Plavix) (06/16/17 22:00) Cta Brain W Iv Contrast W 3d (06/16/17 ) Cta Neck W Iv Contrast W 3d (06/16/17 ) Place In Observation (06/16/17 ) Vital Signs (Adult) Q2HX12,Q4H (06/16/17 22:12) Nih Stroke Scale - Nihss .Daily (06/16/17 22:12) Neuro Checks Q2HX12,Q4H (06/16/17 22:12) Notify Dr: Other (06/16/17 22:12) Remove Urinary Catheter .ONCE (06/16/17 22:12) Ot Request For Service (06/16/17 22:12) Pt Request For Service (06/16/17 22:12) Case Management Consult (06/16/17 ) Activity Oob Ad Elizabeth (06/16/17 22:12) Nursing Bedside Swallow Assess .ONCE (06/16/17 22:12) Scd Bilateral/Knee High MAUREEN.QSHIFT (06/16/17 22:12) Diet Npo (06/17/17 Breakfast) Hemoglobin (Hgb) A1c (06/16/17 22:12) Lipid Profile (06/17/17 06:00) ^ Hold Medication (06/16/17 22:12) Sodium Chloride 0.9% Flush (Ns Flush) (06/17/17 09:00) Sodium Chloride 0.9% Flush (Ns Flush) (06/16/17 22:15) Bedside Glucose MAUREEN.AC&HS (06/16/17 22:12) News Reporter / Telemetry MAUREEN.Q8H (06/16/17 22:12) Consult Stoke Navigator (06/16/17 ) Aspirin Ec (Ecotrin Ec) (06/17/17 09:00) Admit Order (Ed Use Only) (06/16/17 22:25) Labs Laboratory Tests Test 06/16/17 06/16/17 19:15 22:26 White Blood Count 8.5 TH/MM3 Red Blood Count 4.25 MIL/MM3 Hemoglobin 12.6 GM/DL Hematocrit 37.4 % Mean Corpuscular Volume 88.1 FL Mean Corpuscular Hemoglobin 29.6 PG Mean Corpuscular Hemoglobin 33.6 % Concent Red Cell Distribution Width 11.9 % Platelet Count 221 TH/MM3 Mean Platelet Volume 7.7 FL Neutrophils (%) (Auto) 66.2 % Lymphocytes (%) (Auto) 25.6 % Monocytes (%) (Auto) 5.3 % Eosinophils (%) (Auto) 1.8 % Basophils (%) (Auto) 1.1 % Neutrophils # (Auto) 5.5 TH/MM3 Lymphocytes # (Auto) 2.2 TH/MM3 Monocytes # (Auto) 0.5 TH/MM3 Eosinophils # (Auto) 0.2 TH/MM3 Basophils # (Auto) 0.1 TH/MM3 CBC Comment DIFF FINAL Differential Comment Prothrombin Time 10.6 SEC Prothromb Time International 1.0 RATIO Ratio Activated Partial 23.4 SEC Thromboplast Time Sodium Level 144 MEQ/L Potassium Level 3.9 MEQ/L Chloride Level 109 MEQ/L Carbon Dioxide Level 26.6 MEQ/L Anion Gap 8 MEQ/L Blood Urea Nitrogen 12 MG/DL Creatinine 0.88 MG/DL Estimat Glomerular Filtration 63 ML/MIN Rate Random Glucose 100 MG/DL Calcium Level 8.4 MG/DL Total Creatine Kinase 53 U/L Troponin I LESS THAN 0.02 NG/ML Thyroid Stimulating Hormone 3.100 uIU/ML 3rd Gen Urine Color YELLOW Urine Turbidity CLEAR Urine pH 6.[address] 1.021 Urine Protein NEG mg/dL Urine Glucose (UA) NEG mg/dL Urine Ketones NEG mg/dL Urine Occult Blood NEG Urine Nitrite NEG Urine Bilirubin NEG Urine Leukocyte Esterase SMALL Urine RBC 0-3 /hpf Urine WBC 6-8 /hpf Urine Squamous Epithelial 0-5 /hpf Cells Microscopic Urinalysis Comment CULT NOT INDICATED MDM Supervised Visit with KIRILL: No Interpretation(s) Last Impressions Head CT 06/16/[id number] Signed Impressions: Service Date/Time: Friday, June 16, 2017 20:01 - CONCLUSION: Nonspecific white matter changes. Isac Natarajan MD Chest X-Ray 06/16/[id number] Signed Impressions: Service Date/Time: Friday, June 16, 2017 19:25 - CONCLUSION: Bibasilar patchy infiltrates. Isac Natarajan MD 9:15 PM. CBC within normal limit. BMP within normal limit. Cardiac enzymes are normal. Narrative Course I spoke with neurologist Dr. Wu. Neurologic symptoms almost resolved completely. Patient is not a candidate for TPA. Advised continue aspirin 81 mg daily and adding Plavix 75 mg daily. Patient states that she is unable to tolerate any anticoagulation medications including Plavix. Patient has bleeding problem with oral anticoagulation medication in the past. Patient states that she unable to tolerate aspirin 325 mg either because of bleeding problem. Diagnosis Primary Impression: Acute CVA (cerebrovascular accident) Admitting Information Admitting Physician Requests: Admit Hunter Almazan MD Jun 16, 2017 20:31
[2017-06-16] MEDS ORDERED: CLOPIDOGREL 75 MG TAB PO ONE (22:00)
[2017-06-16] MEDS ORDERED: SODIUM CHLORIDE 0.9% FLUSH 5 ML FLUSH IV FLUSH PRN (22:15)
[2017-06-16 22:37] LABS: BLOOD, URINE NEG (NEG); GLUCOSE,URINE NEG (NEG); KETONE, URINE NEG (NEG); NITRITE,URINE NEG (NEG)
[2017-06-16 22:44] LABS: COMMENT (UR) CULT NOT INDICATED; CULTURE IF INDICATED CULT NOT INDICATED; RBC, URINE 0-3 /hpf (0-3); SQUAMOUS EPITHELIAL CELL URINE 0-5 /hpf (0-5); URINE COLOR YELLOW (YELLW/STRAW)
[2017-06-16] MEDS ORDERED: IOHEXOL 350 MG/ML 10 ML VIAL (for RAD DIAG) IV ONE (22:57)
--- NOTE | 2017-06-16 23:23 | RADRPT ---
EXAM DATE/TIME: 06/16/2017 22:24 [facility] COMPARISON: CT BRAIN W/O CONTRAST, June 16, 2017, 20:01. INDICATIONS : Aphasia, since subsided. IV CONTRAST: 75 cc Omnipaque 350 (iohexol) IV ; Cumulative dose for multiple exams. RADIATION DOSE: 43.00 CTDIvol (mGy) ; Combined studies MEDICAL HISTORY : Cerebrovascular disease. SURGICAL HISTORY : Orbital fracture repair. ENCOUNTER: Initial ACUITY: 1 day PAIN SCALE: 0/10 LOCATION: cranial TECHNIQUE: Volumetric scanning was performed using a multi-row detector CT scanner. The data was post processed with a variety of visualization algorithms including full volume maximum intensity projection, multi -planar sliding thin slab reformation, curved planar reformation, and surface rendering techniques. Using automated exposure control and adjustment of the mA and/or kV according to patient size, radiat ion dose was kept as low as reasonably achievable to obtain optimal diagnostic quality images. DICO M format image data is available electronically for review and comparison. FINDINGS: There is excellent visualization of the major intracranial arteries out to the second-order branch ve ssels. There is no evidence for aneurysm, vessel truncation or stenosis, and no evidence for vascula r malformation. CONCLUSION: No significant intracranial vascular abnormality is identified. Isreal Chirinos MD on June 16, 2017 at 23:19 Board Certified Radiologist. This report was verified electronically.
--- NOTE | 2017-06-16 23:27 | RADRPT ---
EXAM DATE/TIME: 06/16/2017 22:24 [facility] COMPARISON: CTA BRAIN W 3D RECON, June 16, 2017, 22:24. INDICATIONS : Aphasia, since subsided. IV CONTRAST: 75 cc Omnipaque 350 (iohexol) IV ; Cumulative dose for multiple exams. RADIATION DOSE: 43.00 CTDIvol (mGy) ; Combined studies MEDICAL HISTORY : Cerebrovascular disease. SURGICAL HISTORY : None. ENCOUNTER: Initial ACUITY: 1 day PAIN SCALE: 0/10 LOCATION: neck Elevated flow velocities and ICA/CCA ratios have been found to correlate with increased degrees of vessel stenosis, calculated as percentage of diameter relative to a normal segment of distal ICA/CCA. TECHNIQUE: Volumetric scanning was performed using a multirow detector CT scanner. The data was post processed with a variety of visualization algorithms including full-volume maximum intensity projection, multip lanar sliding thin-slab reformation, curved-planar reformation, and surface-rendering techniques. Us ing automated exposure control and adjustment of the mA and/or kV according to patient size, radiatio n dose was kept as low as reasonably achievable to obtain optimal diagnostic quality images. DICOM f ormat image data is available electronically for review and comparison. FINDINGS: AORTIC ARCH: There is a three-vessel origin of the great vessels from the aorta. Bilateral scarred disease is pres ent at the aortic arch and near the left subclavian artery ostium. RIGHT CAROTID: The common carotid artery is tortuous proximally but demonstrates no significant atherosclerotic dise ase. There is mild to moderate atherosclerotic disease in the carotid bulb without any significant st enosis present. External carotid artery and contains atherosclerotic calcified plaque in the proximal aspect but no significant stenosis is present. LEFT CAROTID: Common carotid artery demonstrates no abnormality. There is noncalcified plaque near the origin. Ther e is minimal calcified plaque in the carotid bulb but no significant stenosis is present. VERTEBRALS: Left vertebral artery is dominant. There is mucoperiosteal thickening within the right maxillary antrum. Metallic hardware is prese nt along the right orbital floor. CONCLUSION: 1. Very mild atherosclerotic disease at the carotid bulbs bilaterally without significant stenosis pr esent (less than 50% stenosis). 2. Vertebral arteries are within normal limits. Isreal Chirinos MD on June 16, 2017 at 23:22 Board Certified Radiologist. This report was verified electronically.
[2017-06-17] VITALS (8 sets, daily range): BP systolic 145–173; BP diastolic 72–86; PULSE 68–85; RESP 16–18; TEMP 97.3–99; O2SAT 95–97
[2017-06-17] MEDS ORDERED: ACETAMINOPHEN 500 MG CPLT PO ONE (05:00)
[2017-06-17] MEDS: SODIUM CHLOR 0.9% 1000 ML INJ 1,000 ML IV SCH ×2 (05:08→19:18)
[2017-06-17] MEDS: SODIUM CHLORIDE 0.9% FLUSH 5 ML FLUSH IV FLUSH SCH ×2 (09:00→20:52)
[2017-06-17] MEDS: ASPIRIN EC 81 MG TABEC PO SCH (09:32)
[2017-06-17] MEDS ORDERED: ALBUTEROL SULFATE 90 MCG/ACT HFA 8 GM INHALER INH PRN (09:45)
--- NOTE | 2017-06-17 10:22 | HHI.HP ---
HPI Service [facility] Primary Care Physician Raquel Ledezma DO Admission Diagnosis acute CVA Diagnoses: Chief Complaint: Alphabet soup Travel History International Travel<30 Days: No Contact w/Intl Traveler <30 Da: No Traveled to Known Affected Are: No History of Present Illness The patient is a 76-year-old female with a past medical history of TIA who is presenting to the hospital after having speech difficulties. She said that while she was watching the evening news she started to have trouble speaking. She described it as an alphabet soup. She said she would be unable to say some words she was thinking and when she did say words they would be the wrong words. She said the episode lasted about 25 minutes. She said the symptoms resolved, but overnight she did have a couple episodes of difficulty with her speech. She did say last July she had a similar episode that lasted about 5 minutes. She had a full stroke workup at that time. She currently has a loop recorder to monitor for atrial fibrillation, which she reports has been negative so far. She also repeats one week ago she had right orbit surgery. She said she had a fall recently and sustained an orbital fracture and she required two orbital surgeries. She says the right side of her face is still numb from the surgery and she was told it might be that way for a while. She endorses increased drainage from the right eye. She said there was a stitch that was bothering her so she pulled it out. The patient endorses a headache since the surgery. The patient also mentions that she has had multiple life stressors over the past few months and she was wondering if any of those could' ve contributed to her symptoms. She says that her neurologist wanted to treat her for a migraine variant but she has not been compliant with taking the medication. She has also not been taking her blood pressure medications regularly. Review of Systems Except as stated in HPI: all other systems reviewed are Neg Past Family Social History Past Medical History TIA Hypertension Hypothyroidism Right orbital fracture status post 2 surgeries ORIF to the right arm and wrist Hysterectomy Cholecystectomy Bilateral cataract surgery Allergies: Coded Allergies: Augmentin (Verified Allergy, Intermediate, rash, 06/16/17) Avelox (Verified Allergy, Intermediate, rash, 06/16/17) Feldene (Verified Allergy, Intermediate, rash, 06/16/17) Levaquin (Verified Allergy, Intermediate, rash, 06/16/17) Lisinopril (Verified Allergy, Intermediate, rash, 06/16/17) Mobic (Verified Allergy, Intermediate, rash, 06/16/17) Penicillin (Verified Allergy, Intermediate, rash, 06/16/17) Streptomycin Sulfate (Verified Allergy, Intermediate, rash, 06/16/17) Tagamet (Verified Allergy, Intermediate, rash, 06/16/17) Uncoded Allergies: narcotics (Adverse Reaction, Intermediate, "i go nuts", 04/27/17) Active Ordered Medications Current Medications Medications (Trade) Dose Ordered Sig/Mikhail Route Start Time Stop Time Status Last Admin (NS Flush) 2 ml BID IV FLUSH 06/17/17 09:00 (NS Flush) 2 ml UNSCH PRN IV FLUSH 06/16/17 22:15 Aspirin 81 mg 81 mg DAILY PO 06/17/17 09:00 06/17/17 09:32 (NS 1000 ml Inj) 1,000 ml @ 70 mls/hr [id number] IV 06/17/17 05:00 06/17/17 05:08 (Proair Hfa Inh) 2 puff Q4H PRN INH 06/17/17 09:45 (Synthroid) 88 mcg DAILY@06 PO 06/17/17 10:30 (Spiriva Inh) 18 mcg DAILY INH 06/17/17 11:00 (Claritin) 10 mg DAILY PO 06/17/17 10:30 (Symbicort 160-4.5 Inh) 2 puff BID INH 06/17/17 11:00 (Protonix) 40 mg DAILY PO 06/17/17 10:30 Family History Diabetes CAD Social History The patient does not smoke. She has rare alcohol use. She denies illicit drug use. Physical Exam Vital Signs Vital Signs Date Time Temp Pulse Resp B/P Pulse Ox O2 Delivery O2 Flow Rate FiO2 06/17/17 08:00 97.6 79 17 145/78 96 06/17/17 07:15 98.4 73 16 167/72 96 Room Air 06/17/17 07:15 73 16 96 Room Air 06/17/17 06:29 18 06/17/17 05:00 98.7 75 18 159/78 97 Room Air 06/17/17 03:00 Room Air 06/17/17 03:00 99.0 77 18 159/81 95 Room Air 06/17/17 01:00 98.3 68 18 157/81 95 Room Air 06/16/17 23:00 98.5 78 18 143/74 95 Room Air 06/16/17 22:00 70 18 129/70 95 Room Air 06/16/17 21:00 78 18 140/66 94 Room Air 06/16/17 21:00 95 Room Air 06/16/17 20:30 78 18 148/88 95 Room Air 06/16/17 19:40 84 18 156/67 95 Room Air 06/16/17 19:15 95 Room Air 06/16/17 19:15 95 Room Air 06/16/17 19:10 98.2 94 18 169/85 96 Physical Exam GENERAL: Resting comfortably in bed. SKIN: Warm and dry. HEAD: Atraumatic. Normocephalic. EYES: Right eye injection and swelling noted. Minimal drainage. ENT: No nasal bleeding or discharge. Mucous membranes pink and moist. NECK: Trachea midline. No JVD. CARDIOVASCULAR: Regular rate and rhythm. No murmurs. RESPIRATORY: Mild expiratory wheezing. GASTROINTESTINAL: Abdomen soft, non-tender, nondistended. Hepatic and splenic margins not palpable. MUSCULOSKELETAL: Extremities without clubbing, cyanosis, or edema. No obvious deformities. NEUROLOGICAL: Patient is awake and alert. She is speaking full sentences with clear articulation. Motor function upper and lower extremities is equal 5/5 bilaterally. Numbness to the right side of her face, which has been that way since her eye surgery. PSYCHIATRIC: Appropriate mood and affect; insight and judgment normal. Laboratory Laboratory Tests Test 06/16/17 06/16/17 19:15 22:26 White Blood Count 8.5 Red Blood Count 4.25 Hemoglobin 12.6 Hematocrit 37.4 Mean Corpuscular Volume 88.1 Mean Corpuscular Hemoglobin 29.6 Mean Corpuscular Hemoglobin 33.6 Concent Red Cell Distribution Width 11.9 Platelet Count 221 Mean Platelet Volume 7.7 Neutrophils (%) (Auto) 66.2 Lymphocytes (%) (Auto) 25.6 Monocytes (%) (Auto) 5.3 Eosinophils (%) (Auto) 1.8 Basophils (%) (Auto) 1.1 Neutrophils # (Auto) 5.5 Lymphocytes # (Auto) 2.2 Monocytes # (Auto) 0.5 Eosinophils # (Auto) 0.2 Basophils # (Auto) 0.1 CBC Comment DIFF FINAL Differential Comment Prothrombin Time 10.6 Prothromb Time International 1.0 Ratio Activated Partial 23.4 Thromboplast Time Sodium Level 144 Potassium Level 3.9 Chloride Level 109 Carbon Dioxide Level 26.6 Anion Gap 8 Blood Urea Nitrogen 12 Creatinine 0.88 Estimat Glomerular Filtration 63 Rate Random Glucose 100 Calcium Level 8.4 Total Creatine Kinase 53 Troponin I LESS THAN 0.02 Thyroid Stimulating Hormone 3.100 3rd Gen Urine Color YELLOW Urine Turbidity CLEAR Urine pH 6.0 Urine Specific [place] 1.021 Urine Protein NEG Urine Glucose (UA) NEG Urine Ketones NEG Urine Occult Blood NEG Urine Nitrite NEG Urine Bilirubin NEG Urine Leukocyte Esterase SMALL Urine RBC 0-3 Urine WBC 6-8 Urine Squamous Epithelial 0-5 Cells Microscopic Urinalysis Comment CULT NOT INDICATED Result Diagram: 06/16/17191406/16/171914 Imaging Current Medications Medications (Trade) Dose Ordered Sig/Mikhail Route Start Time Stop Time Status Last Admin (NS Flush) 2 ml BID IV FLUSH 06/17/17 09:00 (NS Flush) 2 ml UNSCH PRN IV FLUSH 06/16/17 22:15 Aspirin 81 mg 81 mg DAILY PO 06/17/17 09:00 06/17/17 09:32 (NS 1000 ml Inj) 1,000 ml @ 70 mls/hr [id number] IV 06/17/17 05:00 06/17/17 05:08 (Proair Hfa Inh) 2 puff Q4H PRN INH 06/17/17 09:45 (Synthroid) 88 mcg DAILY@06 PO 06/17/17 10:30 (Spiriva Inh) 18 mcg DAILY INH 06/17/17 11:00 (Claritin) 10 mg DAILY PO 06/17/17 10:30 (Symbicort 160-4.5 Inh) 2 puff BID INH 06/17/17 11:00 (Protonix) 40 mg DAILY PO 06/17/17 10:30 Assessment and Plan Assessment and Plan Acute TIA The patient had 25 minutes of word salad. Her symptoms have resolved. She has similar episode in July. She follows with a neurologist who wanted to treat her for a migraine variant. The patient has not been very compliant with medications. She also has a heart monitor to rule out A. fib, and per patient so far there has been no evidence of atrial fibrillation. She does not take her hydrochlorothiazide regularly. She says she is unable to tolerate more anticoagulation than a baby aspirin because otherwise she bleeds out. CT brain without acute abnormality. No evidence of significant carotid stenosis. - permissive HTN. - neurology consult requested. Would defer further imaging to neuro. - continue ASA 81 mg daily. - echo pending. - check lipid profile, HgbA1c. - PT/ OT. - neuro checks. - telemetry. Right eye surgery S/t orbital fracture from recent fall. - natural tears as needed. - outpt follow-up with orofacial surgery. Anxiety The pt endorses multiple life stressors and is concerned that they may be contributing to her symptoms. - would recommend outpt therapy. HTN The pt does not take her HCTZ regularly. - permissive HTN for now. - resume meds when appropriate. PPx: SCDs Code Status DNR Discussed Condition With Pt, nurse Yg Mancuso DO Jun 17, 2017 10:22
[2017-06-17] MEDS ORDERED: ARTIFICIAL TEARS OPTH SOLN 15 ML BTL RIGHT EYE PRN (10:30)
[2017-06-17 10:50] LABS: LDL CHOLESTEROL 111 MG/DL (0-99)
[2017-06-17] MEDS: TIOTROPIUM BROMIDE 18 MCG INH INH SCH (11:00)
[2017-06-17] MEDS: BUDESONIDE-FORMOTEROL 160/4.5 MCG INHALER INH SCH ×2 (11:00→20:20)
[2017-06-17] MEDS: LORATADINE 10 MG TAB PO SCH (12:05)
[2017-06-17] MEDS: PANTOPRAZOLE SOD 40 MG DELAYED RELEASE TAB PO SCH (12:05)
[2017-06-17] MEDS: LEVOTHYROXINE SODIUM 88 MCG TAB PO SCH (12:06)
--- NOTE | 2017-06-17 12:53 | EKG ---
Date Performed: 06/16/2017 Time Performed: 19:21:07 PTAGE: 76 years EKG: Sinus rhythm NORMAL ECG PREVIOUS TRACING : 05/06/2017 13.15 DOCTOR: José Miguel Myers Interpretating Date/Time 06/17/2017 12:48:32
[2017-06-17] MEDS ORDERED: LORazepam 2 MG/ML VIAL IV PUSH ONE (13:15)
--- NOTE | 2017-06-17 14:29 | OTSOAPIP ---
TIME SESSION COMPLETED: 1400 TREATMENT TIME: 5 MINS. CHART REVIEWED. S: PAIN: 0/10 O: PATIENT IN ROOM WITH PARTNER. ATTEMPTED EVALUATION BUT PATIENT REPORTS THAT SHE DID WELL WITH PHYSICAL THERAPY AND HAS PHYSICAL THERAPIST FOR HOME. SHE DOES NOT REQUIRE ANY ADDITIONAL THERAPY. A: PATIENT RESPONSE TO TREATMENT:EVALUATION NOT COMPLETED P: WILL DISCHARGE OCCUPATIONAL THERAPY _X_ PT WAS INSTRUCTED TO NOT GET OUT OF BED OR CHAIR WITHOUT ASSISTANCE. CALL REESE WAS LEFT WITHIN REACH. DISABILITIES ELEMENTS SCORE - SELF-FEEDING _X___ 4 = INDEPENDENT: EATS FROM A DISH AND DRINKS FROM A CUP OR GLASS PRESENTED IN THE CUSTOMARY MANNER ON TABLE OR TRAY. USES ORDINARY KNIFE, FORK, AND SPOON. ____ 3 = INDEPENDENT WITH DEVICE: USES AN ADAPTIVE OR ASSISTING DEVICE SUCH A STRAW, SPORK, OR ROCKING KNIFE OR REQUIRES MORE THAN A REASONABLE TIME TO EAT. ____ 2 = DEPENDENT - PARTIAL HELP REQUIRED: PERFORMS HALF OR MORE OF FEEDING TASKS BUT REQUIRES SUPERVISION (E.G., STANDBY, CUEING, OR COAXING), SETUP (APPLICATION OF ORTHOTICS), OR OTHER HELP. ____ 1 = DEPENDENT - TOTAL HELP REQUIRED: EITHER PERFORMS LESS THAN HALF OF FEEDING TASKS, OR DOES NOT EAT OR DRINK FULL MEALS BY MOUTH AND RELIES AT LEAST IN PART ON OTHER MEANS OF ALIMENTATION, SUCH PARENTERAL OR GASTROSTOMY FEEDINGS. INTERDISCIPLINARY COMMUNICATION:ELECTRONIC MEDICAL RECORD AND PT DISCHARGE RECOMMENDATION/ATTENTION CASE MANAGEMENT: PATIENT REPORTS NO EQUIPMENT NEEDED EQUIPMENT: Therapist: Sherin Guzman OTR/L Signature on file
--- NOTE | 2017-06-17 16:49 | ECHRPT ---
Indication: TIA CONCLUSIONS Normal left ventricular size. Normal LV function. Wall thickness is normal. No regional wall motion abnormalities are present. There appears to be a lipomatous atrial septum with a tiny PFO. Aortic valve sclerosis is present. No aortic valve regurgitation. No aortic valve stenosis. There is trace tricuspid valve regurgitation. BP: 173 / 86 HR: 71 Rhythm: Sinus MEASUREMENTS (Male / Female) Normal Values Technical Quality:Fair 2D ECHO LV Diastolic Diameter PLAX 4.6 cm 4.2 - 5.9 / 3.9 - 5.3 cm LV Systolic Diameter PLAX 3.3 cm IVS Diastolic Thickness 1.0 cm 0.6 - 1.0 / 0.6 - 0.9 cm LVPW Diastolic Thickness 1.0 cm 0.6 - 1.0 / 0.6 - 0.9 cm LV Relative Wall Thickness 0.4 LVOT Diameter 2.0 cm Aortic Root Diameter 3.3 cm LA Systolic Diameter LX 2.6 cm 3.0 - 4.0 / 2.7 - 3.8 cm M-MODE Aortic Root Diameter MM 2.0 cm DOPPLER AV Peak Velocity 78.8 cm/s AV Peak Gradient 2.5 mmHg AV Mean Gradient 1.5 mmHg AV Velocity Time Integral 12.4 cm LVOT Peak Velocity 72.2 cm/s LVOT Peak Gradient 2.1 mmHg LVOT Velocity Time Integral 12.1 cm LVOT Cardiac Index 1457.2 cm/minm AV Area Cont Eq vti 3.1 cm AV Area Cont Eq pk 2.9 cm Mitral E Point Velocity 58.5 cm/s Mitral A Point Velocity 42.0 cm/s Mitral E to A Ratio 1.4 PV Peak Velocity 63.2 cm/s PV Peak Gradient 1.6 mmHg FINDINGS LEFT VENTRICLE Normal left ventricular size. Wall thickness is normal. The left ventricular systolic function is normal with an estimated ejection fraction in the range of 60-65%. No regional wall motion abnormalities are present. Left ventricular diastolic function parameters are normal. RIGHT VENTRICLE Normal right ventricular size and systolic function. LEFT ATRIUM The left atrial size is normal. RIGHT ATRIUM The right atrial size is normal. ATRIAL SEPTUM There appears to be a lipomatous atrial septum with a tiny PFO. AORTA The aortic root and proximal ascending aorta are normal in size on limited imaging. MITRAL VALVE Structurally normal mitral valve. No mitral valve stenosis or regurgitation. AORTIC VALVE Trileaflet aortic valve. Aortic valve sclerosis is present. No aortic valve regurgitation. No aortic valve stenosis. TRICUSPID VALVE Structurally normal tricuspid valve. There is trace tricuspid valve regurgitation. PULMONARY VALVE The pulmonary valve is not well visualized. VESSELS The inferior vena cava is normal in size. PERICARDIUM No pericardial effusion. Scooter Garnica MD (Electronically Signed) Final Date:17 June 2017 16:48
[2017-06-17 18:09] LABS: HEMOGLOBIN A1a 1.6 %; HEMOGLOBIN A1b 0.8 %; HEMOGLOBIN Ao 85.1 %; HEMOGLOBIN F 0.9 %; HEMOGLOBIN LA1C 1.7 %; HEMOGLOBIN P3 3.4 %
[2017-06-18] VITALS: BP 153/86; PULSE 95; RESP 16; TEMP 97.7; O2SAT 96
[2017-06-18 04:00] VITALS: BP 161/97; PULSE 86; RESP 16; TEMP 97.4; O2SAT 96
[2017-06-18] MEDS: LEVOTHYROXINE SODIUM 88 MCG TAB PO SCH (06:13)
[2017-06-18 07:47] VITALS: PULSE 78
[2017-06-18 08:00] VITALS: BP 146/82; PULSE 69; RESP 18; TEMP 97.3; O2SAT 95
--- NOTE | 2017-06-18 08:21 | MB ---
cc: ZHANG RODRIGUEZ MD DATE OF CONSULTATION 06/17/2017 REASON FOR CONSULTATION "Second TIA, unable to tolerate anticoagulant medications". HISTORY OF PRESENT ILLNESS Ms. Spangler is a 76-year-old female with a past medical history of hypertension, hyperlipidemia and TIA who presented to [facility] with difficulty in finding the right word and saying the word. That lasted 25 minutes. She denies headache, double vision, blurred vision, numbness of the pharynx weakness of the extremity. She had a similar episode last July 2016 that lasted for only about five minutes. She had a full stroke workup at that time that was unremarkable and so has the loop recorder been placed for a diagnosis of atrial fibrillation. The patient also reports that she has fallen and fractured the orbit and she had right orbit surgery twice, the last one was a week ago. REVIEW OF SYSTEMS A 12-point review of systems is negative except for what is stated in HPI. PAST MEDICAL HISTORY 1. Hypertension 2. Hypothyroidism 3. Hyperlipidemia 4. TIA 5. Fall PAST SURGICAL HISTORY 1. Correct orbital fracture 2. Status post knee surgery 3. ORIF right dominant wrist 4. Hysterectomy 5. Cholecystectomy 6. Bilateral cataract surgery ALLERGIES AUGMENTIN, AVELOX, FELDENE, LEVAQUIN, LISINOPRIL, MOBIC, PENICILLIN, STREPTOMYCIN, SULFA AND TAGAMET. MEDICATIONS 1. Aspirin 81 2. Spiriva 3. Claritin 4. Protonix FAMILY HISTORY Diabetes, cholelithiasis. SOCIAL HISTORY Rarely uses alcohol. Does not smoke and denies illicit drug abuse. PHYSICAL EXAMINATION GENERAL: Awake and alert, a very good historian, pleasant not in acute distress HEENT: A bruise around the right eye status post surgery. Intact vision. Intact hearing. NECK: Trachea is in the midline. No signs of meningeal irritation. CARDIOVASCULAR: Regular rate and rhythm. RESPIRATORY: Clear to auscultation. No wheezes. GASTROINTESTINAL: Soft abdomen nontender. MUSCULOSKELETAL: Moves extremities, no cyanosis, clubbing or edema. No deformity. NEUROLOGIC: Awake, alert, oriented to time, person and place. No dysarthria. No dysphasia. Motor exam 5/5 bilateral and symmetrical. No abnormal movements. Normal tone. Sensation intact b/l, symmetrical to light touch and temperature. [id number], [id number] intact. Reflexes 2+ bilateral and symmetrical. Plantars bilaterally downgoing. PSYCHIATRIC: Appropriate mood and affect. Insight and judgment is normal. LABORATORY DATA White blood cells 8.5, hemoglobin 12.6, MCV 88.1. Sodium 144, potassium 3.9, chloride 109, BUN 12, creatinine 0.88, calcium 8.4, total creatinine kinase 53, elevated triglycerides 192, cholesterol 195, LDL cholesterol 111 elevated, troponin is normal. DIAGNOSTIC IMAGING STUDIES - Head CT scan without contrast revealed nonspecific white matter changes. - Head CTA with no significant intracranial vascular abnormality identified. - Neck CTA revealed very mild atherosclerotic disease of the carotid bulbs b/l with no significant stenosis, less than 50% stenosis. Vertebral arteries are within normal limits. DIAGNOSTIC IMPRESSION 1. TIA 2. Hypertension 3. Hyperlipidemia 4. PFO/chronic PLAN - The patient states that there was a "aneurysm found on an MRI done earlier by the neurologist, I reviewed the CTA and I informed the patient that the current imaging rules out an aneurysm. - The neurologic examination is nonfocal - Neurological investigation with no acute intracranial abnormality. - Increase aspirin to 162 mg given the patient cannot tolerate aspirin 325 mg because she had an adverse reaction of bleeding from the nose and skin. - Patient declines taking Plavix because her sister was on Plavix five years ago and she had a severe adverse reaction to it. - The patient does not need further neurologic tests. - She may follow up for the carotid stenosis as an outpatient. - Follow up with cardiology for PFO - Please call for any questions. MD MANDA Kurtz/DESTIN /10:33 PM /7:53 AM GATO
[2017-06-18] MEDS ORDERED: ASPI-99 PO (08:58)
[2017-06-18] MEDS: TIOTROPIUM BROMIDE 18 MCG INH INH SCH (09:00)
[2017-06-18] MEDS: SODIUM CHLORIDE 0.9% FLUSH 5 ML FLUSH IV FLUSH SCH (09:00)
--- NOTE | 2017-06-18 09:00 | HHI.DCPOC ---
Discharge Care Plan Diagnosis: (1) TIA (transient ischemic attack) (2) Orbital floor (blow-out), closed fracture Goals to Promote Your Health * To prevent worsening of your condition and complications * To maintain your health at the optimal level Directions to Meet Your Goals Take your medications as prescribed Follow your dietary instruction Follow activity as directed Keep your appointments as scheduled Take your immunizations and boosters as scheduled If your symptoms worsen call your PCP, if no PCP go to Urgent Care Center or Emergency Room Smoking is Dangerous to Your Health. Avoid second hand smoke Call the 24-hour hour crisis hotline for domestic abuse at Yg Mancuso DO Jun 18, 2017 09:00
--- NOTE | 2017-06-18 09:08 | HHI.PR ---
Subjective Remarks The patient is anxious to go home. She says her speech is still a little bit slow but she overall feels much improved. She said she talked with the neurologist last night. She said that she has been told she has a PFO and has no interest in repairing it at this time. She says she has a follow-up with her ends down checker next week and would rather not see a ends down checker while in the hospital at this time. The patient has no acute complaints. Discussed with neurology. Objective Vitals Vital Signs Date Time Temp Pulse Resp B/P Pulse Ox O2 Delivery O2 Flow Rate FiO2 06/18/17 08:00 97.3 69 18 146/82 95 06/18/17 07:47 78 06/18/17 04:00 97.4 86 16 161/97 96 06/18/17 00:00 97.7 95 16 153/86 96 06/17/17 23:00 85 06/17/17 20:00 97.9 79 16 157/76 96 06/17/17 12:00 97.3 71 18 173/86 96 I/O 06/17/17 06/17/17 06/17/17 06/18/17 06/18/17 06/18/17 07:00 15:00 23:00 07:00 15:00 23:00 Intake Total 420 ml 0 ml Balance 420 ml 0 ml Intake Oral 420 ml IV Total 0 ml # Voids 4 4 # Bowel Movements 0 Result Diagram: 06/16/17191406/16/171914 Imaging Last Impressions Head CT 06/16/171913 Signed Impressions: Service Date/Time: Friday, June 16, 2017 20:01 - CONCLUSION: Nonspecific white matter changes. Isac Natarajan MD Chest X-Ray 06/16/171913 Signed Impressions: Service Date/Time: Friday, June 16, 2017 19:25 - CONCLUSION: Bibasilar patchy infiltrates. Isac Natarajan MD Neck CTA 06/16/17 0000 Signed Impressions: Service Date/Time: Friday, June 16, 2017 22:24 - CONCLUSION: 1. Very mild atherosclerotic disease at the carotid bulbs bilaterally without significant stenosis present (less than 50%% stenosis). 2. Vertebral arteries are within normal limits. Isreal Chirinos MD Head CTA 06/16/17 0000 Signed Impressions: Service Date/Time: Friday, June 16, 2017 22:24 - CONCLUSION: No significant intracranial vascular abnormality is identified. Isreal Chirinos MD Objective Remarks GENERAL: Resting comfortably in bed. SKIN: Warm and dry. HEAD: Atraumatic. Normocephalic. EYES: Right eye injection and swelling noted. Minimal clear drainage. ENT: No nasal bleeding or discharge. Mucous membranes pink and moist. NECK: Trachea midline. No JVD. CARDIOVASCULAR: Regular rate and rhythm. No murmurs. RESPIRATORY: Mild expiratory wheezing. GASTROINTESTINAL: Abdomen soft, non-tender, nondistended. Hepatic and splenic margins not palpable. MUSCULOSKELETAL: Extremities without clubbing, cyanosis, or edema. No obvious deformities. NEUROLOGICAL: Patient is awake and alert. She is speaking full sentences with clear articulation. Motor function upper and lower extremities is equal 5/5 bilaterally. Numbness to the right side of her face, which has been that way since her eye surgery. PSYCHIATRIC: Appropriate mood and affect; insight and judgment normal. Medications and IVs Current Medications Medications (Trade) Dose Ordered Sig/Mikhail Route Start Time Stop Time Status Last Admin (NS Flush) 2 ml BID IV FLUSH 06/17/17 09:00 06/17/17 20:52 (NS Flush) 2 ml UNSCH PRN IV FLUSH 06/16/17 22:15 Aspirin 81 mg 81 mg DAILY PO 06/17/17 09:00 06/17/17 09:32 (NS 1000 ml Inj) 1,000 ml @ 70 mls/hr [id number] IV 06/17/17 05:00 06/17/17 05:08 (Proair Hfa Inh) 2 puff Q4H PRN INH 06/17/17 09:45 (Synthroid) 88 mcg DAILY@06 PO 06/17/17 10:30 06/18/17 06:13 (Spiriva Inh) 18 mcg DAILY INH 06/17/17 11:00 (Claritin) 10 mg DAILY PO 06/17/17 10:30 06/17/17 12:05 (Symbicort 160-4.5 Inh) 2 puff BID INH 06/17/17 11:00 06/17/17 20:20 (Protonix) 40 mg DAILY PO 06/17/17 10:30 06/17/17 12:05 (Tears Naturale Opth Soln) 1 drop Q4H PRN RIGHT EYE 06/17/17 10:30 A/P Assessment and Plan Acute TIA The patient had 25 minutes of word salad. Her symptoms have resolved. She has similar episode in July. She follows with a neurologist who wanted to treat her for a migraine variant. The patient has not been very compliant with medications. She also has a heart monitor to rule out A. fib, and per patient so far there has been no evidence of atrial fibrillation. She does not take her hydrochlorothiazide regularly. She says she is unable to tolerate more anticoagulation than a baby aspirin because otherwise she bleeds out. CT brain without acute abnormality. No evidence of significant carotid stenosis. Echo revealed a tiny PFO, which the pt states she knows about and has no interest in repairing at this time. Neurology consult appreciated. LDL 111. A1c 5.8%. - increase ASA to 162 mg daily as unable to tolerate a full strength ASA s/t bleeding. - start Lipitor 40 mg daily. - PT/ OT. - neuro checks. - telemetry. - follow up with neurology as an outpt. - the pt has an appt with cardiology next week. Right eye surgery S/t orbital fracture from recent fall. - natural tears as needed. - outpt follow-up with orofacial surgery. Anxiety The pt endorses multiple life stressors and is concerned that they may be contributing to her symptoms. - follow up with PCP. HTN The pt does not take her HCTZ regularly. - resume home meds. PPx: SCDs Discharge Planning Discharge home Yg Mancuso DO Jun 18, 2017 09:08
[2017-06-18] MEDS ORDERED: ATOR40TA16 PO (09:09)
[2017-06-18] MEDS: PANTOPRAZOLE SOD 40 MG DELAYED RELEASE TAB PO SCH (09:16)
[2017-06-18] MEDS: LORATADINE 10 MG TAB PO SCH (09:16)
[2017-06-18] MEDS: ASPIRIN EC 81 MG TABEC PO SCH (09:16)
[2017-06-18] MEDS: BUDESONIDE-FORMOTEROL 160/4.5 MCG INHALER INH SCH (09:16)
[2017-06-18] MEDS: SODIUM CHLOR 0.9% 1000 ML INJ 1,000 ML IV SCH (09:36)
== END 2017-06-18 10:11 | disposition home or self-care (01) ==
LOC: PHED 19:08 → PHEDA 22:27 → PHEDH 06-17 02:27 → PH3A 06-17 07:56
PROVIDERS: ADMIT Hospitalist; ATTEND Hospitalist
DX: G45.9 Transient cerebral ischemic attack, unspecified (principal); G43.909 Migraine, unspecified, not intractable, without status migrainosus; R06.2 Wheezing; I10 Essential (primary) hypertension; E78.00 Pure hypercholesterolemia, unspecified; J44.9 Chronic obstructive pulmonary disease, unspecified; Q21.1 Atrial septal defect; E78.5 Hyperlipidemia, unspecified; E03.9 Hypothyroidism, unspecified; K21.9 Gastro-esophageal reflux disease without esophagitis; F32.9 Major depressive disorder, single episode, unspecified; F41.9 Anxiety disorder, unspecified; M85.80 Other specified disorders of bone density and structure, unspecified site; M19.90 Unspecified osteoarthritis, unspecified site; Z91.19 Patient's noncompliance with other medical treatment and regimen; Z86.73 Personal history of transient ischemic attack (TIA), and cerebral infarction without residual deficits; Z87.891 Personal history of nicotine dependence; Z79.899 Other long term (current) drug therapy; Z79.01 Long term (current) use of anticoagulants; Z66 Do not resuscitate
CPT/HCPCS: 70450; 70496; 70498; 71010; 80048; 80061; 81001; 82550; 82948; 83036; 84443; 84484; 85025; 85610; 85730; 93005; 93306; 97162; 99285; G0378; G8987; G8988; J7030; Q9967

== ENCOUNTER 2017-07-15 18:28 | Emergency (ER) | payer MEDICARE, BC ==
[~2017-07-15] VITALS: Ht 157.5 cm; Wt 77.3 kg
[~2017-07-15 18:28] MED LIST changes: -ASPI-110 PO; +ASPI-99 PO; -ATOR10TA15 PO; +ATOR40TA16 PO; -ESCI10TA PO; +FEXO15TA PO; -LEVO100T5 PO; +LEVO88TA2 PO; -TRAM50TA PO
[2017-07-15] MEDS ORDERED: LEXA10TA PO (18:53)
[2017-07-15] MEDS ORDERED: SIME1CAP17 PO (18:53)
[2017-07-15] MEDS ORDERED: SSKI1SOL PO (18:53)
[2017-07-15] MEDS ORDERED: ATOR20TA15 PO (18:53)
[2017-07-15] MEDS ORDERED: DEXT1TAB18 PO (18:53)
[2017-07-15] MEDS ORDERED: GAVICHW CHEW (18:53)
[2017-07-15] MEDS ORDERED: ASPI81CH CHEW (18:53)
--- NOTE | 2017-07-15 18:54 | PD ---
HPI Chief Complaint: Neuro Symptoms/ Deficits Time Seen by Provider: 18:49 Travel History International Travel<30 days: No Contact w/Intl Traveler<30days: No Traveled to known affect area: No History of Present Illness HPI This 76-year-old female says that around 12:30 1:00 this afternoon she had an episode that lasted for about an hour and a half where she had trouble with her speech. She has had a similar episode 4. She has been diagnosed with TIA. Her first TIA was July [id number]. She was then admitted here in May of this year with a second episode. At that time she had a CTA which was negative and she has been on aspirin 162 since then. She says she cannot tolerate a full aspirin because she starts bleeding. She says that today she had a visual disturbance of jagged lines. This has caused by a headache and then trouble taking for about an hour and a half. She did not have any motor weakness. Her symptoms have resolved. 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 She is seeing Dr. Mcduffie and has a recorded fever but she if she has atrial fibrillation. It has been negative to date. She has recently had surgery for a fractured orbit. He is supposed to be on Norvasc but says it caused her to vomit and she has not been able to take it. PFSH Past Medical History Hx Anticoagulant Therapy: Yes Depression: Yes Cancer: No Cardiovascular Problems: Yes (REVEAL MONITOR) High Cholesterol: Yes COPD: Yes Cerebrovascular Accident: Yes Diabetes: No Diminished Hearing: No Endocrine: No Gastrointestinal Disorders: Yes (GERD) GERD: Yes Genitourinary: No Hepatitis: No Hiatal Hernia: Yes Hypertension: Yes Immune Disorder: No Musculoskeletal: Yes (OA, OSTEOPENIA) Neurologic: Yes (TIA, SMALL ANEURSYM CLOSE TO LEFT EYEBROW,CONCUSION) Reproductive: No Respiratory: Yes (COPD) Immunizations Current: Yes Thyroid Disease: Yes Menopausal: Yes Past Surgical History Abdominal Surgery: Yes (CHOLECYSTECTOMY) AICD: No Body Medical Devices: PLATE/SCREWS RIGHT WRIST, REVEAL MONITOR,SCREW IN R EYE Cardiac Surgery: Yes (REVEAL MONITOR) Cholecystectomy: Yes (2014) Ear Surgery: No Endocrine Surgery: No Eye Surgery: Yes (BILATERAL CATARACTS) Genitourinary Surgery: No Gynecologic Surgery: Yes (HYSTERECTOMY) Hysterectomy: Yes (2006) Joint Replacement: No Neurologic Surgery: No Oral Surgery: No Pacemaker: No Thoracic Surgery: No Other Surgery: Yes Social History Alcohol Use: Yes (socially- beer or wine) Tobacco Use: No (former-quit 2 yrs ago smoked 4 ppd ) Substance Use: No Allergies-Medications (Allergen,Severity, Reaction): Coded Allergies: amoxicillin (Unverified Allergy, Intermediate, rash, 07/07/17) cimetidine (Unverified Allergy, Intermediate, rash, 07/07/17) clavulanic acid (Unverified Allergy, Intermediate, rash, 07/07/17) levofloxacin (Unverified Allergy, Intermediate, rash, 07/07/17) lisinopril (Unverified Allergy, Intermediate, rash, 07/07/17) meloxicam (Unverified Allergy, Intermediate, rash, 07/07/17) moxifloxacin (Unverified Allergy, Intermediate, rash, 07/07/17) penicillin G (Unverified Allergy, Intermediate, rash, 07/07/17) piroxicam (Unverified Allergy, Intermediate, rash, 07/07/17) streptomycin (Unverified Allergy, Intermediate, rash, 07/07/17) Uncoded Allergies: narcotics (Adverse Reaction, Intermediate, "i go nuts", 04/27/17) Reported Meds & Prescriptions Reported Meds & Active Scripts Active Reported SSKI Liq (Potassium Iodide) 1,000 Mg/Ml Soln 300 Mg PO TID Simethicone 125 Mg Cap 125 Mg PO QID PRN Gaviscon (Aluminum Hydroxide-Mag Trisil) 80-14.2 mg Chew 2-4 Tab CHEW QID PRN Maximum 16 tabs/24 hrs Mucinex DM Maximum Strength (Dextromethorphan-Guaifenesin ER 12 HR) 60-1,200 Mg Tab 1 Tab PO BID PRN Lexapro (Escitalopram Oxalate) 10 Mg Tab 10 Mg PO DAILY Atorvastatin (Atorvastatin Calcium) 20 Mg Tab 20 Mg PO HS Aspirin 81 Mg Chew 162 Mg CHEW DAILY Jewell Allergy (Fexofenadine HCl) 180 Mg Tab 180 Mg PO DAILY Levothyroxine (Levothyroxine Sodium) 88 Mcg Tab 88 Mcg PO DAILY Ventolin Hfa 18 GM Inh (Albuterol Sulfate) 90 Mcg/Act Aer 2 Puff INH Q4H PRN Aluminum Hydroxide Liq Gel (Aluminum Hydroxide) 320 Mg/5 Ml Susp 10 Ml PO Q4H PRN Take after meals and at bedtime. Maximum of 3,840 mg (60 ml)/24 hrs. Hydrochlorothiazide 12.5 Mg Cap 12.5-25 Mg PO DAILY PRN Advair Diskus Inh (Fluticasone-Salmeterol Inh) 250-50 Mcg/Blist Aer 1 Puff INH BID Rinse mouth after use. Omeprazole 40 Mg Cap 40 Mg PO BID Spiriva Handihaler (Tiotropium Inh) 18 Mcg Cap 18 Mcg INH DAILY 1 capsule = 18 mcg Review of Systems General / Constitutional: No: Fever, Chills Eyes: Positive: Visual changes, No: Diploplia HENT: Positive: Headaches, No: Vertigo Cardiovascular: No: Chest Pain or Discomfort, Palpitations Respiratory: No: Cough, Shortness of Breath Gastrointestinal: No: Vomiting, Diarrhea Genitourinary: No: Urgency, Frequency Neurologic: Positive: Focal Abnormalities, No: Weakness, Change in Mentation Psychiatric: No: Anxiety Hematologic/Lymphatic: No: Easy Bruising Physical Exam Narrative GENERAL: Well-developed female SKIN: Focused skin assessment warm/dry. HEAD: Atraumatic. Normocephalic. EYES: Pupils equal and round. No scleral icterus. No injection or drainage. ENT: No nasal bleeding or discharge. Mucous membranes pink and moist. NECK: Trachea midline. No JVD. CARDIOVASCULAR: Regular rate and rhythm. No murmur appreciated. RESPIRATORY: No accessory muscle use. Clear to auscultation. Breath sounds equal bilaterally. GASTROINTESTINAL: Abdomen soft, non-tender, nondistended. Hepatic and splenic margins not palpable. MUSCULOSKELETAL: No obvious deformities. No clubbing. No cyanosis. No edema. NEUROLOGICAL: Awake and alert. No obvious cranial nerve deficits. Motor grossly within normal limits. Normal speech. PSYCHIATRIC: Appropriate mood and affect; insight and judgment normal. Data Data Last Documented VS Vital Signs Date Time Temp Pulse Resp B/P (MAP) Pulse Ox O2 Delivery O2 Flow Rate FiO2 07/15/17 20:06 98.8 72 16 130/65 (86) 95 Orders Orders Electrocardiogram (07/15/17 18:49) Complete Blood Count With Diff (07/15/17 18:49) Basic Metabolic Panel (Bmp) (07/15/17 18:49) Ct Brain W/O Iv Contrast(Rout) (07/15/17 18:49) Labs Laboratory Tests Test 07/15/17 19:45 White Blood Count 6.7 TH/MM3 Red Blood Count 4.03 MIL/MM3 Hemoglobin 12.0 GM/DL Hematocrit 35.0 % Mean Corpuscular Volume 86.7 FL Mean Corpuscular Hemoglobin 29.8 PG Mean Corpuscular Hemoglobin Concent 34.3 % Red Cell Distribution Width 12.4 % Platelet Count 200 TH/MM3 Mean Platelet Volume 7.7 FL Neutrophils (%) (Auto) 59.9 % Lymphocytes (%) (Auto) 29.3 % Monocytes (%) (Auto) 7.4 % Eosinophils (%) (Auto) 2.3 % Basophils (%) (Auto) 1.1 % Neutrophils # (Auto) 3.9 TH/MM3 Lymphocytes # (Auto) 2.0 TH/MM3 Monocytes # (Auto) 0.5 TH/MM3 Eosinophils # (Auto) 0.2 TH/MM3 Basophils # (Auto) 0.1 TH/MM3 CBC Comment DIFF FINAL Differential Comment Blood Urea Nitrogen 10 MG/DL Creatinine 0.88 MG/DL Random Glucose 110 MG/DL Calcium Level 7.9 MG/DL Sodium Level 141 MEQ/L Potassium Level 3.6 MEQ/L Chloride Level 106 MEQ/L Carbon Dioxide Level 28.7 MEQ/L Anion Gap 6 MEQ/L Estimat Glomerular Filtration Rate 63 ML/MIN MDM Medical Decision Making Medical Screen Exam Complete: Yes Emergency Medical Condition: Yes Medical Record Reviewed: Yes Differential Diagnosis Differential includes TIA, complicated migraine, Narrative Course Patient had transient neurologic deficit lasted an hour to an hour and a half. CT scan shows stable noncontrast head CT without acute findings. This episode was preceded by this exact visual abnormality and headache and may be palpated migraine or it may be a TIA. I have discussed the case with Dr. Wu. The patient had a CTA last May this does not need to be repeated. She will be released. She has said that she will not take Plavix under any circumstances because of an adverse occurrence with her sister. Topamax was offered for prophylactic treatment of migraine patient declines and will follow up with Dr. Soto Diagnosis Primary Impression: TIA (transient ischemic attack) Additional Instructions: Follow-up with Dr. Soto, return as needed Disposition: 01 DISCHARGE HOME Condition: Stable Alejandro Pappas MD Jul 15, 2017 18:54
--- NOTE | 2017-07-15 19:35 | RADRPT ---
EXAM DATE/TIME: 07/15/2017 19:02 [facility] COMPARISON: CT BRAIN W/O CONTRAST, June 16, 2017, 20:01. INDICATIONS : Resolved difficulty speaking. RADIATION DOSE: 60.94 CTDIvol (mGy) MEDICAL HISTORY : Cardiovascular disease. Aneurysm, intracranial. Chronic obstructive pulmonary disease. SURGICAL HISTORY : Cholecystectomy. Hysterectomy.Facial surgery for blowout fracture. ENCOUNTER: Initial ACUITY: 1 day PAIN SCALE: 0/10 LOCATION: cranial TECHNIQUE: Multiple contiguous axial images were obtained of the head. Using automated exposure control and adj ustment of the mA and/or kV according to patient size, radiation dose was kept as low as reasonably a chievable to obtain optimal diagnostic quality images. DICOM format image data is available electro nically for review and comparison. FINDINGS: CEREBRUM: The ventricles are normal. There is periventricular white matter low-attenuation, stable from the kiya or study. No evidence of midline shift, mass lesion, hemorrhage or acute infarction. No extra-axial fluid collections are seen. POSTERIOR FOSSA: The cerebellum and brainstem are intact. The 4th ventricle is midline. The cerebellopontine angle i s unremarkable. EXTRACRANIAL: The visualized portion of the orbits is intact. There has been prior right orbital floor repair with mesh. SKULL: The calvaria is intact. No evidence of skull fracture. CONCLUSION: Stable noncontrast head CT without an acute finding identified. There are stable periventricular whit e matter changes, likely representing chronic microvascular ischemia. Isreal Chirinos MD on July 15, 2017 at 19:31 Board Certified Radiologist. This report was verified electronically.
[2017-07-15 20:03] LABS: AUTOMATED NEUTROPHIL # 3.9 TH/MM3 (1.8-7.7); BASOPHIL # 0.1 TH/MM3 (0-0.2); BASOPHIL % 1.1 % (0.0-2.0); EOSINOPHIL # 0.2 TH/MM3 (0-0.4); EOSINOPHIL % 2.3 % (0.0-4.0); HEMO FLAGS DIFF FINAL; LYMPH % 29.3 % (9.0-44.0); MEAN CELL VOLUME 86.7 FL (80.0-100.0); MEAN CORPUSCULAR HEMOGLOBIN 29.8 PG (27.0-34.0); MEAN CORPUSCULAR HGB CONC 34.3 % (32.0-36.0); MONO % 7.4 % (0.0-8.0); NEUT % 59.9 % (16.0-70.0); PLATELET COUNT 200 TH/MM3 (150-450); RED BLOOD COUNT 4.03 MIL/MM3 (4.00-5.30); RED CELL DISTRIBUTION WIDTH 12.4 % (11.6-17.2); WHITE BLOOD COUNT 6.7 TH/MM3 (4.0-11.0)
[2017-07-15 20:06] VITALS: BP 130/65; PULSE 72; RESP 16; TEMP 98.8; O2SAT 95
[2017-07-15 20:10] LABS: POTASSIUM 3.6 MEQ/L (3.5-5.1)
[2017-07-15 20:15] LABS: BICARBONATE 28.7 MEQ/L (21.0-32.0)
--- NOTE | 2017-07-16 11:44 | EKG ---
Date Performed: 07/15/2017 Time Performed: 19:25:34 PTAGE: 76 years EKG: Sinus rhythm NORMAL ECG Compared to prior tracing no significant change PREVIOUS TRACING : 06/16/2017 19.21 DOCTOR: Papa Haskins Interpretating Date/Time 07/16/2017 11:41:42
== END 2017-07-15 21:08 | disposition home or self-care (01) ==
LOC: PHED 18:28
DX: G45.9 Transient cerebral ischemic attack, unspecified (principal); I10 Essential (primary) hypertension; I25.10 Atherosclerotic heart disease of native coronary artery without angina pectoris; J44.9 Chronic obstructive pulmonary disease, unspecified; K21.9 Gastro-esophageal reflux disease without esophagitis; Z88.0 Allergy status to penicillin; Z90.49 Acquired absence of other specified parts of digestive tract; Z79.01 Long term (current) use of anticoagulants
CPT/HCPCS: 70450; 80048; 85025; 93005; 99285

== ENCOUNTER 2017-09-06 07:22 | Day surgery (SDC) | payer MEDICARE, BC ==
[~2017-09-06] VITALS: Ht 157.5 cm; Wt 81.1 kg
[~2017-09-06 07:22] MED LIST changes: -ASPI-99 PO; +ASPI81CH CHEW; +ATOR20TA15 PO; -ATOR40TA16 PO; -COBA1000 PO; +DEXT1TAB18 PO; +GAVICHW CHEW; +LEXA10TA PO; +SIME1CAP17 PO; +SSKI1SOL PO
[2017-09-06] MEDS ORDERED: NS 1000 ML IV SCH (08:00)
[2017-09-06] MEDS ORDERED: ceFAZolin 2 GM PREMIX 50 ML IV SCH (08:30)
[2017-09-06] MEDS ORDERED: VANCOMYCIN 1000 MG/NS 250 ML IV SCH ×2 (08:30)
[2017-09-06] MEDS ORDERED: LORazepam 1 MG TAB SL SCH (08:30)
[2017-09-06] MEDS ORDERED: MUPIROCIN 2% OINT 1 APPLIC/GM SYR NASAL SCH (08:30)
[2017-09-06] MEDS ORDERED: POVIDONE IODINE 5% (ANTISEPSIS KIT) 4 APPLICATIONS EACH NARE SCH (08:30)
[2017-09-06] MEDS ORDERED: CHLORHEXIDINE GLUCONATE 2 % 1 PACK (2 CLOTHS) TOPICAL SCH (08:30)
[2017-09-06] MEDS ORDERED: TOPA25TA8 PO (08:47)
[2017-09-06 09:18] VITALS: BP 148/85; PULSE 74; RESP 17; TEMP 98.2; O2SAT 96
[2017-09-06 09:39] LABS: AUTOMATED NEUTROPHIL # 2.7 TH/MM3 (1.8-7.7); BASOPHIL % 0.6 % (0.0-2.0); EOSINOPHIL # 0.1 TH/MM3 (0-0.4); EOSINOPHIL % 1.2 % (0.0-4.0); HEMATOCRIT 34.7 % (35.0-46.0); HEMO FLAGS DIFF FINAL; LYMPHOCYTE # 1.9 TH/MM3 (1.0-4.8); MEAN CORPUSCULAR HEMOGLOBIN 29.7 PG (27.0-34.0); MEAN CORPUSCULAR HGB CONC 33.4 % (32.0-36.0); MONO % 8.1 % (0.0-8.0); NEUT % 53.1 % (16.0-70.0); PLATELET COUNT 202 TH/MM3 (150-450); RED CELL DISTRIBUTION WIDTH 15.2 % (11.6-17.2); WHITE BLOOD COUNT 5.1 TH/MM3 (4.0-11.0)
[2017-09-06 09:50] LABS: APTT (PATIENT) 23.9 SEC (24.3-30.1); PROTHROMBIN TIME - PATIENT 10.9 SEC (9.8-11.6)
[2017-09-06 09:57] LABS: BICARBONATE 26.5 MEQ/L (21.0-32.0); POTASSIUM 3.9 MEQ/L (3.5-5.1)
[2017-09-06] MEDS ORDERED: MIDAZOLAM HCL 5 MG/5 ML VIAL ONE (11:00)
[2017-09-06] MEDS ORDERED: CLIN1CAP6 PO (11:49)
--- NOTE | 2017-09-06 13:34 | MP ---
cc: EDD RODNEY M.D. DATE OF SURGERY: 09/06/2017 PROCEDURE Loop recorder ___. INDICATION Mrs. Spangler is a 76-year-old female with history of palpitation, hyperlipidemia, obesity, who has a previous loop recorder inserted around a year ago in [place]. Since the implant she was having some secretion as well as redness around the implant. She received multiple rounds of antibiotics. There is still secretion. Decision for loop recorder ___ was taken. The risks, the nature and the benefit of the procedure are clearly stated to her. The risks include pneumothorax, cardiac perforation, infection and even . She understood and agreed to proceed. PROCEDURE After written informed consent was obtained, the patient was prepped and draped in the usual sterile fashion. Conscious sedation was initiated and maintained throughout the procedure using intravenous Versed. Once sedation was verified, the left parasternal area over the loop was anesthetized with 2% Xylocaine. Using #11 blade scalpel, 11 centimeter incision was made. Subsequently, the loop was removed. The pocket was irrigated. At this point I decided not to reapproximate the border of the wound because of infection. I did cover the wound with 4x4. No incident report. The patient tolerated the procedure. 1. Explanted hardware. The explanted loop recorder is a [employer], please refer to implant dictation. CONCLUSION Successful loop recorder explantation. COMMENT AND RECOMMENDATION The patient will be observed and discharged home later today. MD MELISSA Akers/ADELE /11:41 AM /1:18 PM
== END 2017-09-06 13:49 | disposition home or self-care (01) ==
LOC: HDOC 07:22 → HDIC 07:23 → HDOC 13:49
PROVIDERS: ATTEND Internal Medicine Interventional Cardiology
DX: Z45.09 Encounter for adjustment and management of other cardiac device (principal); R00.2 Palpitations; E78.5 Hyperlipidemia, unspecified; I10 Essential (primary) hypertension; E66.9 Obesity, unspecified; Z68.32 Body mass index [BMI] 32.0-32.9, adult; Z79.01 Long term (current) use of anticoagulants
CPT/HCPCS: 33284; 80048; 85025; 85610; 85730; J2250

== ENCOUNTER 2017-10-18 12:42 | Emergency (ER) | payer MEDICARE, BC ==
[~2017-10-18] VITALS: Ht 157.5 cm; Wt 81.8 kg
[~2017-10-18 12:42] MED LIST changes: +ASPI-516 CHEW; -ASPI81CH CHEW; +CLIN300C5 PO; -HYDR12.57 PO; +TOPI25 PO
[2017-10-18 12:53] VITALS: BP 188/90; PULSE 79; RESP 16; TEMP 98.2; O2SAT 96
[2017-10-18] MEDS ORDERED: SODIUM CHLORIDE 0.9% FLUSH 10 ML FLUSH IVF PRN (13:00)
[2017-10-18] MEDS ORDERED: METOCLOPRAMIDE HCL 10 MG/2 ML VIAL IV PUSH ONE (13:00)
[2017-10-18] MEDS ORDERED: SODIUM CHLORID 0.9% 500 ML INJ 500 ML IV ONE (13:00)
--- NOTE | 2017-10-18 13:02 | PD ---
HPI Chief Complaint: Neuro Symptoms/ Deficits Time Seen by Provider: 12:59 Travel History International Travel<30 days: No Contact w/Intl Traveler<30days: No Traveled to known affect area: No History of Present Illness HPI 77-year-old female came to the emergency room with history of sudden onset of severe headache at 5:30 this morning. She took some Tylenol. Patient has history of migraine and her headache this time was no different than her usual migraine which is also associated with aura. However at 10:30 she started noticing that she was having difficulty forming certain words and naming objects. She has had this along with her headache as well but her neurologist had told her that if this happens again she should go to the emergency room and hence she came to the ER. Her partner brought her in. Patient was hypertensive in triage. She appeared anxious but was answering questions appropriately and following commands. Patient mentioned that her neurologist is Dr. Carrero. Currently she said her headache was 8 out of 10 and it was frontal and going around her left temporal area PFSH Past Medical History Narrative Medical List of her past medical, surgical, social and family history is reviewed from the nursing note. Hx Anticoagulant Therapy: Yes Anxiety: Yes Depression: Yes Cancer: No Cardiovascular Problems: Yes (heart murmur) High Cholesterol: Yes Chest Pain: No COPD: Yes Cerebrovascular Accident: Yes Diabetes: No Diminished Hearing: No Endocrine: No Gastrointestinal Disorders: Yes (GERD) GERD: Yes Glaucoma: No Genitourinary: No Hepatitis: No Hiatal Hernia: Yes Hypertension: Yes Immune Disorder: No Musculoskeletal: Yes (OA, OSTEOPENIA) Neurologic: Yes (TIA, SMALL ANEURSYM CLOSE TO LEFT EYEBROW,CONCUSION) Psychiatric: Yes (ANXIETY,) Reproductive: No Respiratory: Yes (COPD) Integumentary: No Immunizations Current: Yes Thyroid Disease: Yes (Hypothyroidism) Tetanus Vaccination: Unknown Influenza Vaccination: No (doesn't get this vaccine ) Menopausal: Yes Past Surgical History Abdominal Surgery: Yes (CHOLECYSTECTOMY) AICD: No Body Medical Devices: PLATE/SCREWS RIGHT WRIST, REVEAL MONITOR,SCREW IN R EYE Cardiac Surgery: Yes (REVEAL MONITOR) Cholecystectomy: Yes (2014) Ear Surgery: No Endocrine Surgery: No Eye Surgery: Yes (BILATERAL CATARACTS) Genitourinary Surgery: No Gynecologic Surgery: Yes (HYSTERECTOMY) Hysterectomy: Yes Joint Replacement: No Neurologic Surgery: No Oral Surgery: No Pacemaker: No Thoracic Surgery: No Other Surgery: Yes (right upper extremity/shoulder) Social History Alcohol Use: Yes (socially- beer or wine) Tobacco Use: No (former-quit 2 yrs ago smoked 4 ppd ) Substance Use: No Allergies-Medications (Allergen,Severity, Reaction): Coded Allergies: fentanyl (Verified Allergy, Severe, 10/18/17) midazolam (Verified Allergy, Severe, Lethargy, 10/18/17) topiramate (Verified Allergy, Severe, Lethargy, 10/18/17) amoxicillin (Unverified Allergy, Intermediate, rash, 10/18/17) cimetidine (Unverified Allergy, Intermediate, rash, 10/18/17) clavulanic acid (Unverified Allergy, Intermediate, rash, 10/18/17) levofloxacin (Unverified Allergy, Intermediate, rash, 10/18/17) lisinopril (Unverified Allergy, Intermediate, rash, 10/18/17) meloxicam (Unverified Allergy, Intermediate, rash, 10/18/17) moxifloxacin (Unverified Allergy, Intermediate, rash, 10/18/17) penicillin G (Unverified Allergy, Intermediate, rash, 10/18/17) piroxicam (Unverified Allergy, Intermediate, rash, 10/18/17) streptomycin (Unverified Allergy, Intermediate, rash, 10/18/17) Uncoded Allergies: narcotics (Adverse Reaction, Intermediate, "i go nuts", 04/27/17) Comments List of her allergies reviewed from the nursing note. Reported Meds & Prescriptions Reported Meds & Active Scripts Active Reported Bentyl (Dicyclomine HCl) 10 Mg Cap 10 Mg PO TID PRN Hydrochlorothiazide 12.5 Mg Tab 12.5 Mg PO DAILY SSKI Liq (Potassium Iodide) 1,000 Mg/Ml Soln 300 Mg PO TID Simethicone 125 Mg Cap 125 Mg PO QID PRN Gaviscon (Aluminum Hydroxide-Mag Trisil) 80-14.2 mg Chew 2-4 Tab CHEW QID PRN Maximum 16 tabs/24 hrs Mucinex DM Maximum Strength (Dextromethorphan-Guaifenesin ER 12 HR) 60-1,200 Mg Tab 1 Tab PO BID PRN Lexapro (Escitalopram Oxalate) 10 Mg Tab 10 Mg PO DAILY Atorvastatin (Atorvastatin Calcium) 20 Mg Tab 20 Mg PO HS Aspirin 81 Mg Chew 162 Mg CHEW DAILY Jewell Allergy (Fexofenadine HCl) 180 Mg Tab 180 Mg PO DAILY Levothyroxine (Levothyroxine Sodium) 88 Mcg Tab 88 Mcg PO DAILY Ventolin Hfa 18 GM Inh (Albuterol Sulfate) 90 Mcg/Act Aer 2 Puff INH Q4H PRN Aluminum Hydroxide Liq Gel (Aluminum Hydroxide) 320 Mg/5 Ml Susp 10 Ml PO Q4H PRN Take after meals and at bedtime. Maximum of 3,840 mg (60 ml)/24 hrs. Advair Diskus Inh (Fluticasone-Salmeterol Inh) 250-50 Mcg/Blist Aer 1 Puff INH BID Rinse mouth after use. Omeprazole 40 Mg Cap 40 Mg PO BID Spiriva Handihaler (Tiotropium Inh) 18 Mcg Cap 18 Mcg INH DAILY 1 capsule = 18 mcg Narrative Medication List of home medications reviewed from the nursing note Review of Systems Except as stated in HPI: all other systems reviewed are Neg Neurologic: Positive: Headache, Other Physical Exam Narrative GENERAL: Awake, alert, anxious, moderate distress SKIN: Focused skin assessment warm/dry. HEAD: Atraumatic. Normocephalic. EYES: Pupils equal and round. No scleral icterus. No injection or drainage. ENT: No nasal bleeding or discharge. Mucous membranes pink and moist. NECK: Trachea midline. No JVD. CARDIOVASCULAR: Regular rate and rhythm. No murmur appreciated. RESPIRATORY: No accessory muscle use. Clear to auscultation. Breath sounds equal bilaterally. GASTROINTESTINAL: Abdomen soft, non-tender, nondistended. Hepatic and splenic margins not palpable. MUSCULOSKELETAL: No obvious deformities. No clubbing. No cyanosis. No edema. NEUROLOGICAL: Awake and alert. No obvious cranial nerve deficits. Motor grossly within normal limits. Normal speech. NIH stroke score of 0 PSYCHIATRIC: Appropriate mood and affect; insight and judgment normal. Data Data Last Documented VS Orders Orders Prothrombin Time / Inr (Pt) (10/18/17 12:59) Complete Blood Count With Diff (10/18/17 12:59) Basic Metabolic Panel (Bmp) (10/18/17 12:59) Troponin I (10/18/17 12:59) Urinalysis - C+S If Indicated (10/18/17 12:59) Ct Brain W/O Iv Contrast(Rout) (10/18/17 12:59) Ecg Monitoring (10/18/17 12:59) Iv Access Insert/Monitor (10/18/17 12:59) Oximetry (10/18/17 12:59) Sodium Chloride 0.9% Flush (Ns Flush) (10/18/17 13:00) Metoclopramide Inj (Reglan Inj) (10/18/17 13:00) Sodium Chlorid 0.9% 500 Ml Inj (Ns 500 M (10/18/17 13:00) Alprazolam (Xanax) (10/18/17 13:15) Ed Discharge Order (10/18/17 14:24) Electrocardiogram (10/18/17 13:01) Labs Laboratory Tests Test 10/18/17 13:30 10/18/17 13:35 Urine Color STRAW Urine Turbidity CLEAR Urine pH 7.0 Urine Specific [place] 1.004 Urine Protein NEG mg/dL Urine Glucose (UA) NEG mg/dL Urine Ketones NEG mg/dL Urine Occult Blood NEG Urine Nitrite NEG Urine Bilirubin NEG Urine Leukocyte Esterase NEG Urine WBC 0-2 /hpf Urine Squamous Epithelial Cells 2-4 /hpf Urine Transitional Epithelial Cells 0-1 /hpf Microscopic Urinalysis Comment CULT NOT INDICATED White Blood Count 7.0 TH/MM3 Red Blood Count 4.19 MIL/MM3 Hemoglobin 12.4 GM/DL Hematocrit 37.3 % Mean Corpuscular Volume 89.0 FL Mean Corpuscular Hemoglobin 29.6 PG Mean Corpuscular Hemoglobin Concent 33.2 % Red Cell Distribution Width 14.4 % Platelet Count 213 TH/MM3 Mean Platelet Volume 7.8 FL Neutrophils (%) (Auto) 60.6 % Lymphocytes (%) (Auto) 29.0 % Monocytes (%) (Auto) 7.1 % Eosinophils (%) (Auto) 2.0 % Basophils (%) (Auto) 1.3 % Neutrophils # (Auto) 4.3 TH/MM3 Lymphocytes # (Auto) 2.0 TH/MM3 Monocytes # (Auto) 0.5 TH/MM3 Eosinophils # (Auto) 0.1 TH/MM3 Basophils # (Auto) 0.1 TH/MM3 CBC Comment DIFF FINAL Differential Comment Prothrombin Time 11.2 SEC Prothromb Time International Ratio 1.0 RATIO Blood Urea Nitrogen 12 MG/DL Creatinine 0.82 MG/DL Random Glucose 88 MG/DL Calcium Level 8.8 MG/DL Sodium Level 142 MEQ/L Potassium Level 3.7 MEQ/L Chloride Level 106 MEQ/L Carbon Dioxide Level 30.0 MEQ/L Anion Gap 6 MEQ/L Estimat Glomerular Filtration Rate 68 ML/MIN Troponin I LESS THAN 0.02 NG/ML MDM Medical Decision Making Medical Screen Exam Complete: Yes Emergency Medical Condition: Yes Medical Record Reviewed: Yes Interpretation(s) Twelve-lead EKG was reviewed by me. Normal sinus rhythm, normal axis, nonspecific ST-T wave changes. Heart rate of 77 bpm. Differential Diagnosis TIA, CVA, migraine headache with aura Narrative Course 2:06 PM I discussed the case initially with Dr. Carrero who is on-call for neurology and happens to be patient's neurologist as well. He recalled the patient very well and said that she had a thorough workup not too long ago for TIA/CVA/aneurysm. However he agreed that a stroke alert was not needed to be called and if her test results are back and within normal limit she could be discharged home. Meanwhile I was told that patient refused to take the Xanax which in my opinion would bring the blood pressure down since she seemed very anxious. 2:16 PM all her test results of back and within normal limit. I'll reassess her and probably discharge her home. Currently she said her headache is down to 3 or 4 out of 10. Her last blood pressure was 174/85. Procedures EKG Prior to Arrival: No Physician Communication Physician Communication Dr. Carrero Diagnosis Primary Impression: Hypertension Qualified Codes: I10 - Essential (primary) hypertension Additional Impressions: Migraine Qualified Codes: G43.119 - Migraine with aura, intractable, without status migrainosus Anxiety Referrals: Primary Care Physician Additional Instructions: Please continue checking your blood pressure and it continues to run high then you might need to be started on blood pressure medication by her primary care. Please discuss this with your primary care. Return to the ER if the condition worsens or new concerns. Med/Other Pt SpecificInfo: No Change to Meds Disposition: 01 DISCHARGE HOME Condition: Stable Roshni Casanova MD Oct 18, 2017 13:02
[2017-10-18 13:07] VITALS: BP 182/78; PULSE 77; RESP 16; TEMP 98.6; O2SAT 97
[2017-10-18] MEDS ORDERED: ALPRAZolam 0.5 MG TAB PO ONE (13:15)
[2017-10-18] MEDS ORDERED: HYDR12.56 PO (13:23)
[2017-10-18] MEDS ORDERED: DICY10 PO (13:23)
--- NOTE | 2017-10-18 13:31 | RADRPT ---
EXAM DATE/TIME: 10/18/2017 13:14 [facility] COMPARISON: CT BRAIN W/O CONTRAST, July 15, 2017, 19:02. INDICATIONS : Headache with difficulty speaking and with memory. RADIATION DOSE: 57.66 CTDIvol (mGy) MEDICAL HISTORY : Hypothyroidism. Hypertension. Chronic obstructive pulmonary disease.Anticoagulant therapy. SURGICAL HISTORY : Cholecystectomy. Hysterectomy.Orthopedic surgery. Bilateral cataract. ENCOUNTER: Initial ACUITY: 1 day PAIN SCALE: 6/10 LOCATION: cranial TECHNIQUE: Multiple contiguous axial images were obtained of the head. Using automated exposure control and adj ustment of the mA and/or kV according to patient size, radiation dose was kept as low as reasonably a chievable to obtain optimal diagnostic quality images. DICOM format image data is available electro nically for review and comparison. FINDINGS: CEREBRUM: Periventricular low attenuation change involving both cerebral hemispheres. This is stable. The ventr icles are normal for age. No evidence of midline shift, mass lesion, hemorrhage or acute infarction. No extra-axial fluid collections are seen. POSTERIOR FOSSA: The cerebellum and brainstem are intact. The 4th ventricle is midline. The cerebellopontine angle i s unremarkable. EXTRACRANIAL: The visualized portion of the orbits is intact. There is an orthopedic plate associated with the orbi jennifer floor on the right. SKULL: The calvaria is intact. No evidence of skull fracture. CONCLUSION: 1. No acute intracranial abnormality. 2. Chronic small vessel ischemic change. Varghese Meyer Jr., MD on October 18, 2017 at 13:27 Board Certified Radiologist. This report was verified electronically.
[2017-10-18 13:51] LABS: AUTOMATED NEUTROPHIL # 4.3 TH/MM3 (1.8-7.7); BASOPHIL # 0.1 TH/MM3 (0-0.2); BASOPHIL % 1.3 % (0.0-2.0); EOSINOPHIL # 0.1 TH/MM3 (0-0.4); HEMATOCRIT 37.3 % (35.0-46.0); HEMO FLAGS DIFF FINAL; MEAN CORPUSCULAR HEMOGLOBIN 29.6 PG (27.0-34.0); MEAN CORPUSCULAR HGB CONC 33.2 % (32.0-36.0); MONO % 7.1 % (0.0-8.0); NEUT % 60.6 % (16.0-70.0); PLATELET COUNT 213 TH/MM3 (150-450); RED BLOOD COUNT 4.19 MIL/MM3 (4.00-5.30); RED CELL DISTRIBUTION WIDTH 14.4 % (11.6-17.2)
[2017-10-18 14:02] LABS: BLOOD, URINE NEG (NEG); GLUCOSE,URINE NEG (NEG); KETONE, URINE NEG (NEG); NITRITE,URINE NEG (NEG)
[2017-10-18 14:03] LABS: CHLORIDE 106 MEQ/L (98-107); POTASSIUM 3.7 MEQ/L (3.5-5.1); SODIUM (NA) 142 MEQ/L (136-145)
[2017-10-18 14:05] LABS: ANION GAP 6 MEQ/L (5-15); BLOOD UREA NITROGEN 12 MG/DL (7-18)
[2017-10-18 14:06] LABS: PROTHROMBIN TIME - PATIENT 11.2 SEC (9.8-11.6)
[2017-10-18 14:08] LABS: GLOMERULAR FILTRATION RATE 68 ML/MIN (>89)
[2017-10-18 14:17] LABS: URINE COLOR STRAW (YELLW/STRAW)
[2017-10-18 14:18] LABS: COMMENT (UR) CULT NOT INDICATED; CULTURE IF INDICATED CULT NOT INDICATED; TRANSITIONAL EPI CELLS, URINE 0-1 /hpf; WBC, URINE 0-2 /hpf (0-5)
[2017-10-18 14:26] VITALS: BP 174/85; PULSE 75; RESP 16; O2SAT 98
--- NOTE | 2017-10-19 18:08 | EKG ---
Date Performed: 10/18/2017 Time Performed: 13:01:11 PTAGE: 77 years EKG: Sinus rhythm POSSIBLE INFERIOR MYOCARDIAL INFARCTION Since previous tracing, no significant change noted BORDERLI NE ECG PREVIOUS TRACING : 07/15/2017 19.25.34 DOCTOR: Alpa Pearce Interpretating Date/Time 10/19/2017 18:06:19
== END 2017-10-18 14:49 | disposition home or self-care (01) ==
LOC: PHED 12:42
DX: I10 Essential (primary) hypertension (principal); G43.119 Migraine with aura, intractable, without status migrainosus; F41.9 Anxiety disorder, unspecified; R47.02 Dysphasia; R94.31 Abnormal electrocardiogram [ECG] [EKG]; E03.9 Hypothyroidism, unspecified; E78.00 Pure hypercholesterolemia, unspecified; Z79.01 Long term (current) use of anticoagulants; Z86.59 Personal history of other mental and behavioral disorders; Z86.79 Personal history of other diseases of the circulatory system; Z87.09 Personal history of other diseases of the respiratory system; Z87.19 Personal history of other diseases of the digestive system; Z87.39 Personal history of other diseases of the musculoskeletal system and connective tissue; Z86.69 Personal history of other diseases of the nervous system and sense organs; Z87.891 Personal history of nicotine dependence
CPT/HCPCS: 70450; 80048; 81001; 84484; 85025; 85610; 93005; 96361; 96374; 99285; J2765; J7040